=== PATIENT | female | born 1950 | race Caucasian/White ===

== ENCOUNTER 2020-01-16 17:13 | Emergency (ER) | payer MEDICARE, OTHER ==
[~2020-01-16] VITALS: Ht 162.6 cm; Wt 93.4 kg
[~2020-01-16 17:13] MED LIST: DEMADEX10 MG PO; IBUPROFEN800 MG PO; LISINOPRIL20 MG PO; SPIRONOLACTONE50 MG PO
--- OUTSIDE RECORDS SUMMARY | 2020-01-16 19:04 | XMS ---
PreManage Notification: DANIEL EVANS Security Trimming Caser Events No recent Security Events currently on file CRITERIA MET - History of Sepsis [facility] - 2 Visits in 30 Days [facility]Srinivasa MCCURDY [employer] PHONE: [phone] Tania has no Care Guidelines for this patient. Vel VISIT COUNT (12 MO.) [address] TOTAL 4 NOTE: Visits indicate total known visits. ED/C VISIT TRACKING (12 MO.) 01/16/2020 17:14 [facility] [place] [place] TYPE: Emergency COMPLAINT: - RT LEG PAIN [facility] DIAGNOSES: - Leg Pain - Leg Swelling 03/05/2019 16:43 [facility] [place] TYPE: Emergency COMPLAINT: - POSS INFECTION LT INDEX FINGER DIAGNOSES: - Contusion of left hip, initial encounter - Pain in left finger(s) - Allergy status to penicillin - Nicotine dependence, unspecified, uncomplicated - Fall on same level, unspecified, initial encounter - Pain in left hip - Allergy status to narcotic agent 02/28/2019 11:30 [facility] [place] TYPE: Emergency DIAGNOSES: - SPIDER BITE INPATIENT VISIT TRACKING (12 MO.) No inpatient visits to display in this time frame [id number]
[2020-01-16] MEDS ORDERED: GABAPENTIN300 MG PO (19:21)
[2020-01-16] MEDS ORDERED: HYDROMORPHONE HC2 MG PO (19:21)
[2020-01-16] MEDS ORDERED: TRAMADOL HCL50 MG PO (19:21)
[2020-01-16] MEDS ORDERED: LISINOPRIL10 MG PO (19:21)
== END 2020-01-16 21:47 | disposition home or self-care (01) ==
LOC: ED 17:13
DX: R60.0 Localized edema (principal); F17.200 Nicotine dependence, unspecified, uncomplicated; Z88.0 Allergy status to penicillin; Z88.5 Allergy status to narcotic agent; Z79.899 Other long term (current) drug therapy
CPT/HCPCS: 93971; 94640; 94664; 99284-25

== ENCOUNTER 2020-05-18 01:54 | Emergency (ER) | payer MEDICARE, OTHER ==
[~2020-05-18] VITALS: Ht 162.6 cm; Wt 83.9 kg
[~2020-05-18 01:54] MED LIST changes: +GABAPENTIN300 MG PO; +HYDROMORPHONE HC2 MG PO; +LISINOPRIL10 MG PO; +TRAMADOL HCL50 MG PO
--- OUTSIDE RECORDS SUMMARY | 2020-05-18 01:56 | XMS ---
PreManage Notification: DANIEL EVANS Security Delivery Person Events No recent Security Events currently on file CRITERIA MET - History of Sepsis Dx - PDMP [facility] KAZ Ramos PHONE: [phone] Tania has no Care Guidelines for this patient. E.Trini VISIT COUNT (12 MO.) 1 [facility] 2 [facility] TOTAL 3 NOTE: Visits indicate total known visits. ED/C VISIT TRACKING (12 MO.) 05/18/2020 01:55 [facility] TYPE: Emergency COMPLAINT: - KNEE PAIN 01/16/2020 17:14 [facility] TYPE: Emergency COMPLAINT: - RT LEG PAIN/NO INJURY DIAGNOSES: - Nicotine dependence, unspecified, uncomplicated - Localized edema - Allergy status to narcotic agent - Allergy status to narcotic agent - Allergy status to penicillin - Other chcf (current) drug therapy - Other specified soft tissue disorders 01/16/2020 14:44 [facility] [place] TYPE: Emergency DIAGNOSES: - Leg Pain - Leg Swelling INPATIENT VISIT TRACKING (12 MO.) No inpatient visits to display in this time frame [id number]
== END 2020-05-18 06:36 | disposition left against medical advice (07) ==
LOC: ED 01:54
DX: S09.90XA Unspecified injury of head, initial encounter (principal); S16.1XXA Strain of muscle, fascia and tendon at neck level, initial encounter; S80.01XA Contusion of right knee, initial encounter; W01.0XXA Fall on same level from slipping, tripping and stumbling without subsequent striking against object, initial encounter; F17.200 Nicotine dependence, unspecified, uncomplicated; Z88.0 Allergy status to penicillin; Z88.5 Allergy status to narcotic agent; Z79.899 Other long term (current) drug therapy
CPT/HCPCS: 70450; 72125; 73560; 99284-25; A9270

== ENCOUNTER 2021-01-28 17:10 | Emergency (ER) | payer MEDICARE, OTHER ==
[~2021-01-28] VITALS: Ht 167.6 cm; Wt 97.5 kg
--- NOTE | 2021-01-28 20:03 | EKG ---
[facility] [address] [facility] [place], [place] [address] Signed Normal sinus rhythm Nonspecific T wave abnormality Abnormal ECG When compared with ECG of 28-JAN-2021 17:18, (Unconfirmed) No significant change was found Confirmed by HERI HERNANDEZ DO ([id number]) on 01/28/2021 8:03:42 PM Electronically Signed By: HERI HERNANDEZ DO 01/28/212002 PATIENT NAME: DANIEL EVANS Electrocardiogram DATE OF : 54 PHYSICIAN: HERI HERNANDEZ DO REPORT #: [id number] REPORT IS CONFIDENTIAL AND NOT TO BE RELEASED WITHOUT AUTHORIZATION
[2021-01-28] MEDS ORDERED: PROTONIX40 MG PO (22:02)
[2021-01-28] MEDS ORDERED: ZOFRAN4 MG PO (22:02)
[2021-01-28] MEDS ORDERED: HYDROCODON-ACE1 EA10 PO (22:02)
[2021-01-28] MEDS ORDERED: CEPHALEXIN500 MG PO (22:10)
--- NOTE | 2021-01-29 14:06 | EKG ---
[facility] [address] [facility] [place], [place] [address] Signed Normal sinus rhythm Normal ECG No previous ECGs available Confirmed by HERI HERNANDEZ DO ([id number]) on 01/29/2021 2:06:29 PM Electronically Signed By: HERI HERNANDEZ DO 01/29/21 1406 PATIENT NAME: DANIEL EVANS Electrocardiogram DATE OF : 54 PHYSICIAN: HERI HERNANDEZ DO REPORT #: [id number] REPORT IS CONFIDENTIAL AND NOT TO BE RELEASED WITHOUT AUTHORIZATION
== END 2021-01-28 22:51 | disposition home or self-care (01) ==
LOC: ED 17:10
DX: R10.13 Epigastric pain (principal); R07.9 Chest pain, unspecified; N39.0 Urinary tract infection, site not specified; I25.2 Old myocardial infarction; F17.200 Nicotine dependence, unspecified, uncomplicated; Z88.5 Allergy status to narcotic agent; Z20.822 Contact with and (suspected) exposure to COVID-19
CPT/HCPCS: 71045; 71275; 74174; 80053; 81001; 83605; 83690; 83735; 83880; 84484; 85025; 85379; 93005; 93010; 99285-25; A9270; C9803; J1170; J2405; Q9967; U0003

== ENCOUNTER 2021-04-03 15:05 | Emergency (ER) | payer MEDICARE, OTHER ==
[~2021-04-03] VITALS: Ht 167.6 cm; Wt 89.8 kg
[~2021-04-03 15:05] MED LIST changes: +CEPHALEXIN500 MG PO; +HYDROCODON-ACE1 EA10 PO; +LASIX20 MG PO; +POTASSIUM CHLO10 MEQ PO; +PROTONIX40 MG PO; +ZOFRAN4 MG PO
--- OUTSIDE RECORDS SUMMARY | 2021-04-03 15:14 | XMS ---
PreManage Notification: DANIEL EVANS Security [employer] Work[employer] Events 1 event(s) in the past 18 months Most recent security events: Elopement at [facility] 05/18/2020 01:55 - Other Details: PATIENT LEFT AMA CRITERIA MET - [facility] - 2 Visits in 30 Days CARE PROVIDERS MIGUEL MCCOY [facility] 05/21/2020-Current PHONE: [phone] [facility] KAZ Ramos PHONE: [phone] Tania has no Care Guidelines for this patient. Vel VISIT COUNT (12 MO.) [address] [place] [address] TOTAL 4 NOTE: Visits indicate total known visits. ED/UCC VISIT TRACKING (12 MO.) 04/03/2021 15:06 [facility] [place] TYPE: Emergency COMPLAINT: - WEAKNESS 03/26/2021 15:26 [facility] [place] TYPE: Emergency COMPLAINT: - WEAKNESS, FEEL BAD, FATIGUED DIAGNOSES: - Nicotine dependence, unspecified, uncomplicated - Allergy status to penicillin - Heart failure, unspecified - Weakness - Allergy status to narcotic agent 01/28/2021 17:11 [facility] [place] TYPE: Emergency COMPLAINT: - CHEST PAIN DIAGNOSES: - Chest pain, unspecified - Urinary tract infection, site not specified - Old myocardial infarction - Nicotine dependence, unspecified, uncomplicated - Allergy status to narcotic agent - Epigastric pain 05/18/2020 01:55 [facility] [place] TYPE: Emergency COMPLAINT: - KNEE PAIN DIAGNOSES: - Other tank terminal gauger (current) drug therapy - Unspecified injury of head, initial encounter - Allergy status to penicillin - Nicotine dependence, unspecified, uncomplicated - Fall on same level from slipping, tripping and stumbling without subsequent striking against object, initial encounter - Contusion of right knee, initial encounter - Strain of muscle, fascia and tendon at neck level, initial encounter - Allergy status to narcotic agent - Pain in right knee INPATIENT VISIT TRACKING (12 MO.) No inpatient visits to display in this time frame [id number]
[2021-04-03] MEDS ORDERED: POTASSIUM CHLO20 ME2 PO (18:16)
[2021-04-03] MEDS ORDERED: LASIX20 MG PO (18:16)
[2021-04-03] MEDS ORDERED: VENTOLIN HFA18 GM INH (18:18)
== END 2021-04-03 18:42 | disposition home or self-care (01) ==
LOC: ED 15:05
DX: I50.9 Heart failure, unspecified (principal); I25.2 Old myocardial infarction; F17.200 Nicotine dependence, unspecified, uncomplicated; J44.9 Chronic obstructive pulmonary disease, unspecified; Z88.0 Allergy status to penicillin; Z88.5 Allergy status to narcotic agent; Z79.899 Other long term (current) drug therapy; Z20.822 Contact with and (suspected) exposure to COVID-19; Z79.51 Long term (current) use of inhaled steroids
CPT/HCPCS: 36415; 71045; 80048; 83880; 85025; 99285-25; U0003

== ENCOUNTER 2021-06-12 14:32 | Emergency (ER) | payer OTHER, MEDICARE ==
[~2021-06-12] VITALS: Ht 167.6 cm; Wt 89.8 kg
--- NOTE | ~2021-06-12 | EKG ---
[facility] [address] [facility] [place], [place] [address] Draft EK completed, results pending confirmation PATIENT NAME: DANIEL EVANS Electrocardiogram DATE OF : 54 PHYSICIAN: PRELIMINARY REPORT #: [id number] REPORT IS CONFIDENTIAL AND NOT TO BE RELEASED WITHOUT AUTHORIZATION
[~2021-06-12 14:32] MED LIST changes: +POTASSIUM CHLO20 ME2 PO; +VENTOLIN HFA18 GM INH
== END 2021-06-12 18:19 | disposition home or self-care (01) ==
LOC: ED 14:32
DX: I63.9 Cerebral infarction, unspecified (principal); I21.4 Non-ST elevation (NSTEMI) myocardial infarction; I25.2 Old myocardial infarction; I50.9 Heart failure, unspecified; F17.200 Nicotine dependence, unspecified, uncomplicated; Z88.0 Allergy status to penicillin; Z88.5 Allergy status to narcotic agent; Z79.899 Other long term (current) drug therapy
CPT/HCPCS: 70450; 70496; 70498; 71045; 80053; 85025; 85610; 85730; 93005; 93010; Q9967

== ENCOUNTER 2022-01-20 18:04 | Inpatient (IN) | payer MEDICARE, OTHER ==
[~2022-01-20] VITALS: Ht 167.6 cm; Wt 70.1 kg
--- OUTSIDE RECORDS SUMMARY | 2022-01-20 18:06 | XMS ---
PreManage Notification: DANIEL EVANS Security Photographic Platemaker Events 1 event(s) in the past 18 months Most recent security events: Elopement at [facility] 12/24/2021 18:26 - Patient eloped before treatment completed. - Patient with suicidal and/or homicidal ideations eloped. - Patient eloped with IV in place. Details: Patient LWOB CRITERIA MET - [facility] - 2 Visits in 30 Days - Group Notification CARE PROVIDERS MIGUEL MCCOY [facility] 05/21/2020-Current PHONE: [phone] [facility] KAZ Ramos PHONE: [phone] Kerrie Gabriel Craft Artist/Driver'S License Reviewing Officer 11/16/2021-Current PHONE: [phone] Tania has no Care Guidelines for this patient. Vel VISIT COUNT (12 MO.) 6 [facility] TOTAL 6 NOTE: Visits indicate total known visits. ED/UCC VISIT TRACKING (12 MO.) 01/20/2022 18:04 [facility] [place] TYPE: Emergency COMPLAINT: - WEAKNESS 12/24/2021 18:26 [facility] [place] TYPE: Emergency COMPLAINT: - FALL BACK PAIN 06/12/2021 14:33 [facility] [place] TYPE: Emergency COMPLAINT: - FALL DIAGNOSES: - Other long wall mining machine tender (current) drug therapy - Non-ST elevation (NSTEMI) myocardial infarction - Weakness - Heart failure, unspecified - Nicotine dependence, unspecified, uncomplicated - Allergy status to narcotic agent - Old myocardial infarction - Allergy status to penicillin - Cerebral infarction, unspecified 04/03/2021 15:06 [facility] [place] TYPE: Emergency COMPLAINT: - WEAKNESS DIAGNOSES: - Chronic obstructive pulmonary disease, unspecified - Allergy status to penicillin - Old myocardial infarction - Contact with and (suspected) exposure to COVID-19 - Allergy status to narcotic agent - Other mcc (current) drug therapy - Weakness - Heart failure, unspecified - Nicotine dependence, unspecified, uncomplicated - alf (current) use of inhaled steroids 03/26/2021 15:26 [facility] [place] TYPE: Emergency COMPLAINT: - WEAKNESS, FEEL BAD, FATIGUED DIAGNOSES: - Allergy status to narcotic agent - Heart failure, unspecified - Allergy status to penicillin - Weakness - Patient's noncompliance with other medical treatment and regimen - Nicotine dependence, unspecified, uncomplicated 01/28/2021 17:11 [facility] [place] TYPE: Emergency COMPLAINT: - CHEST PAIN DIAGNOSES: - Allergy status to narcotic agent - Old myocardial infarction - Contact with and (suspected) exposure to COVID-19 - Epigastric pain - Nicotine dependence, unspecified, uncomplicated - Urinary tract infection, site not specified - Chest pain, unspecified INPATIENT VISIT TRACKING (12 MO.) No inpatient visits to display in this time frame [id number]
--- NOTE | 2022-01-21 01:22 | NUR ---
PT ARRIVED VIA STRETCHER FROM ED. REPORT RECEIVED FROM KAYLA MELENDEZ. PT ABLE TO ROLL SELF FROM STRETCHER TO BED. PT REQUESTING TO USE COMMODE. 1PA FROM BED TO COMMODE AND BACK TO BED. KAYLA TAYLOR IN ROOM FOR QUICK ADMIT. NO OTHER NEEDS FROM THIS RN AT THIS TIME. CALL LIGHT IN REACH.
--- NOTE | 2022-01-21 02:16 | NUR ---
ASSESSMENT COMPLETE. LUNG SOUNDS CLEAR. BOWEL TONES ACTIVE. PT ON RA WITH O2 SATS AT 95%. PT REPORTING PAIN 7/10 IN LOWER BACK. PT REPOSITIONED SELF AND IS RESTING IN BED LAYING ON LEFT SIDE. SCATTERED BRUISING NOTED TO BLE. WHEN ASSESSING SENSATION PT WAS UNABLE TO TELL WHEN LLE WAS TOUCHED. PT ALSO REPORTED THAT SHE SOMETIMES GETS NUMBNESS IN BUE AND BLE. PT DENIES ANY OTHER NEEDS AT THIS TIME. CALL LIGHT IN REACH. BED ALARM ON.
--- NOTE | 2022-01-21 02:30 | NUR ---
pt ARRIVES TO [place] VIA STRETCHER. UP TO BSC, 1PA. PRIMARY RN ASSESSING pt. pt FORGETFUL, DOES NOT TAKE ANY HOME MEDICATIONS. EMOTIONAL REGARDING CONVERSATION WITH ER DR. carmela'S SON AND BROTHER NOTIFIED VIA TELEPHONE BY THIS RN THAT pt IN HOSPITAL. pt REQUESTING PASTORAL CARE VISIT. ORIENTATION TO ROOM PROVIDED.
--- NOTE | 2022-01-21 05:33 | NUR ---
PT RESTING IN BED. VITALS AND IS AND OS COMPLETE. WHILE TRYING TO TAKE VITALS PT WAS FORGETFUL OF THE FACT I WAS TRYING TO TAKER HER BP AND KEPT MOVING. PT HAD TO BE REMINDED SEVERAL TIMES OF WHAT WE WERE DOING. PT DECLINES NEEDS TO USE RESTROOM. NO FURTHER NEEDS. CALL LIGHT WITHIN REACH.
--- NOTE | 2022-01-21 06:15 | NUR ---
IN TO ROUND ON PT. PT INCONTINENT OF URINE. OLD ATTENDS AND TIFFANIE PADS REMOVED. PRISCA CARE PROVIDED. NEW ATTENDS AND TIFFANIE PAD PLACED. NEW GOWN AND BLANKETS PROVIDED. PT REQUESTING A SNACK. JELLO PROVIDED. FRESH ICE WATER PROVIDED. PT REPORTS NO OTHER NEEDS AT THIS TIME. CALL LIGHT IN REACH. EDUCATION TRAFFIC ENGINEERING DIRECTOR LIGHT USE PROVIDED. BED ALARM ON.
--- NOTE | 2022-01-21 07:20 | NUR ---
ASSUMING CARE OF PT. RECEIVED REPORT FROM UNRULY GARZA. PT RESTING IN BED, CALL LIGHT WITHIN REACH. BED ALARM ON FOR PT SAFETY. PT HAS LR GOING AT 150ML/HR.
--- NOTE | 2022-01-21 10:13 | NUR ---
IN ROOM FOR MORNING ASSESSMENT AND MORNING MEDICATION. PT COMPLAINT OF NAUSEA AND BEGAN DRY HEAVING. NAUSEA MEDICATION GIVEN TO PT. PT RESTING IN BED, CALL LIGHT WITHIN REACH, BEDRAILS UP FOR SAFETY. BED ALARM ON.
--- NOTE | 2022-01-21 10:15 | NUR ---
Spoke with pt and she states she lives in an apartment, no stairs. She lives alone, but has a small dog. She uses a walker. She has a history of a stroke and also of meth use. She has hep C and and numerous masses on her liver. She is upset by this new diagnosis. She does not want to be placed and plans on dc to home. She has a friend, but it is unclear if they will be able to help her. At this time pt plans on dc to home and fu with oncology. Pt declined PT today. She has a niece in law abd nephew in town. Her sister is in [facility]. She does not know their phone numbers and declines to give names. Pt has a history of drug use, does not want to discuss this.
--- NOTE | 2022-01-21 10:21 | NUR ---
DR RHOADES IN ROOM TO ASSESS PT.
--- NOTE | 2022-01-21 10:50 | NUR ---
PT SALINE LOCKED AND TAKEN CT VIA WHEELCHAIR BY IMAGING STAFF.
--- NOTE | 2022-01-21 11:26 | NUR ---
PT RESTING IN BED WITH BLANKET COVERING BODY. CALL LIGHT WITHIN REACH AND BEDRAILS UP FOR SAFETY. BED ALARM IN PLACE. PT HOOKED BACK UP TO IV FLUID. NO FURTHER NEEDS AT THIS TIME.
--- NOTE | 2022-01-21 13:07 | NUR ---
MED REC COMPLETE
--- NOTE | 2022-01-21 14:13 | NUR ---
PT ASSISTED TO BATHROOM AND BACK TO BED WITH 1PA/FWW. PT SLEEPY, BUT AMBULATED WELL. DENIED PAIN OR NAUSEA AT THIS TIME. CALL LIGHT WITHIN REACH AND BEDRAILS UP FOR SAFETY.
--- NOTE | 2022-01-21 14:51 | NUR ---
PT HAD REQUESTED SPIRITUAL CARE VISIT-INFORMED BY KAYLA CASTILLO. PT RESTING IN BED ON L SIDE, BED ALARM GOING OFF. KAYLA JACKSON IN TO ADJUST. PT EXPRESSED DISMAY AT NOT HAVING HER DOG "YETI" IN WITH HER. M/S STAFF WILL WORK TO MAKE THIS HAPPEN. PT SHARED HOW IMPORTANT HER DOG IS TO HER. PT REQUESTED PRAYER, INCLUDED PRAYER FOR SAFETY FOR HER DOG. GAVE BLESSING AND G.POST. WILL FOLLOW
--- NOTE | 2022-01-21 15:52 | CONS ---
[facility] [address] [place], [place] [address] Signed DATE OF CONSULTATION: 01/21/2022 CHIEF COMPLAINT: Weight loss. HISTORY OF PRESENT ILLNESS: Daniel is a 71-year-old female who apparently is and her three children have moved away. She lives in a trailer. She does not drive. She uses a taxi service. Her brother Terry happens to live here in [place], [place], but apparently they do not get along very well. She has not been to her doctor in over a year. She is supposed to take blood pressure pills and diuretic pills. She has been smoking up to two packs of cigarettes a day for years. She says she quit drinking alcohol. She has been feeling just weak and losing weight the last month with nausea and just overall body aches and pains and some diarrhea. She finally came to emergency room for evaluation. In the emergency room, her calcium was high at 14.9 with a slightly elevated alkaline phosphatase of 1.18 and a positive urinalysis. She was therefore given Lasix, saline and calcitonin with a decrease in a calcium level of 12.1 and some Rocephin for the UTI. She has been admitted to the Internal Medicine service. She had a chest x-ray which was not very concerning. However, the CT scan of the chest, abdomen and pelvis shows multiple lymph nodes in her neck, mediastinum and abdomen. She has some mucus plugging and tree budding in her lungs. She has multiple metastatic lesions in her liver. There was some thickening to the proximal gastric body associated with hiatal hernia. Therefore, I have been asked to see her as a general surgeon on-call for consideration of upper endoscopy. PAST MEDICAL HISTORY: Hepatitis C virus, CA x2, congestive heart failure, COPD, hiatal hernia and diverticulosis. PAST SURGICAL HISTORY: Includes bilateral total knee replacement, cholecystectomy, appendectomy, kidney stones, lumbar back fusion with metal remaining. SOCIAL HISTORY: She smoked up to two packs of cigarettes a day for years. She quit drinking. She is and has three children, none of which live around here. Her brother Terry happens to live here in [place], [place]. His phone #[phone]. She lives in a trailer, but does not drive. She uses a taxi service. She has kept herself a full code. She prefers the [facility] pharmacy. Dr. Oracio Mccoy is her primary care provider. FAMILY HISTORY: Mom had an unknown type of cancer. Electronically Signed By: NOY RHOADES MD 01/21/22 1552 PATIENT NAME: DANIEL EVANS CONSULTATION DATE OF : 54 REPORT #: [id number] PHYSICIAN: NOY RHOADES MD PCP: ORACIO MCCOY MD REPORT IS CONFIDENTIAL AND NOT TO BE RELEASED WITHOUT AUTHORIZATION [facility] [address] [place] [id number] Signed REVIEW OF SYSTEMS: She had 10 systems reviewed and she apparently has never had a previous colonoscopy. ALLERGIES: Penicillin, codeine. MEDICATIONS: She is supposed to take a blood pressure pill and a diuretic pill. PHYSICAL EXAMINATION: VITAL SIGNS: Blood pressure is 141/69, heart rate 87, respiratory rate 19, temperature 97.1. She is 97% on room air. She is 5 feet 6 inches at 70 kg. GENERAL: Daniel is a 71-year-old female lying supine semi-recumbent in her hospital bed. The nurse is at the bedside. She looks older than her stated age. She has clearly been a long-time smoker. She does appear little fatigued and weak. She is not emaciated, but she is thin. LUNGS: Generally clear to auscultation bilaterally. HEART: Regular rate and rhythm without murmurs. ABDOMEN: Soft, flat, and feels like I can catch the anterior edge of the liver below the right subcostal margin. I cannot palpate any specific masses in the abdomen. LABORATORY DATA: Her white blood cell count 9.5, hemoglobin 12, her creatinine 1.36, calcium was 14.9, it is down to 12.1. Liver function tests are negative, although the alkaline phosphatase is up a little bit at 118. Albumin is 3.0. TSH normal 1.3. BNP was up at 2764. COVID was negative. The urine culture came back with lots of white blood cells, red blood cells and bacteria. The urine culture is pending. RADIOGRAPHIC STUDIES: Chest x-ray was unremarkable. The CT scan shows the multiple liver METS and lymph nodes throughout the neck, mediastinum and abdomen. She has some thickening along the proximal gastric body near the hiatal hernia. She has some mucous plugging and tree buds as well. ASSESSMENT AND PLAN: Daniel is a 71-year-old female who presents with metastatic cancer. The source is not clear. It could be stomach. Therefore, I have been asked to do an upper endoscopy tomorrow with biopsies. If that is negative, she would be best served by CT-guided biopsy on liver lesions. If she has surgery she will have to heal for 6 to 8 weeks before she can receive any chemotherapy. I reviewed this with Daniel in detail. We have reviewed upper endoscopy. She understands there is risk including, but not limited to gas bloating, crampy abdominal pain, bleeding, perforation requiring surgery, and missed diagnosis. She will also need a monitored anesthesia care provider. She has expressed Electronically Signed By: NOY RHOADES MD 01/21/22 1443 PATIENT NAME: DANIEL EVANS CONSULTATION DATE OF : 54 REPORT #: [id number] PHYSICIAN: NOY RHOADES MD PCP: ORACIO MCCOY MD REPORT IS CONFIDENTIAL AND NOT TO BE RELEASED WITHOUT AUTHORIZATION [facility] [address] [place] [id number] Signed understanding and would like to proceed. MD JEANNE Camp/CHAVEZL /[id number] cc: MD Dr. Oracio Camp Copies: NOY RHOADES MD ~ Electronically Signed By: NOY RHOADES MD 01/21/22 1552 PATIENT NAME: DANIEL EVANS CONSULTATION DATE OF : 54 REPORT #: [id number] PHYSICIAN: NOY RHOADES MD PCP: ORACIO MCCOY MD REPORT IS CONFIDENTIAL AND NOT TO BE RELEASED WITHOUT AUTHORIZATION
--- NOTE | 2022-01-21 16:39 | NUR ---
Bed alarming, pt sitting at edge of bed and states needing to use BR. Left sided neglect/defecits noted with ambulation requiring cueing. Pt states has a "sour taste in her stomach". Neuro exam completed, pt oriented to all but date, time. Pt states numbness in BLE. L hand facepiece line supervisor 2/5, R hand 5/5. Back to bed, warm blankets provided, bed alarm set.
--- NOTE | 2022-01-21 17:16 | NUR ---
Call light answered, pt's daughter Coty on personal cell phone, patient asks this RN to give her daughter an update and add her to her contact list. Pt daughter updated on pt condition and all questions answered. Pt denies further needs, oriented at this time.
--- NOTE | 2022-01-21 17:33 | NUR ---
PT REFUSED TO EAT DINNER BECAUSE IT WAS "GROSS". TRIED PUDDING, DIDNT WANT THAT. GIVEN 7UP DIDNT WANT THAT. TRYING SALTINES. GIVEN HOT PACK FOR SORE BACK. IN BED RESTING, CALL LIGHT IN REACH.
--- NOTE | 2022-01-21 18:37 | NUR ---
PT RESTING IN BED, CALL LIGHT WITHIN REACH, BEDRAILS UP FOR SAFETY. NO COMPLAINTS OR NEEDS AT THIS TIME.
--- NOTE | 2022-01-21 19:15 | NUR ---
REPORT RECEIVED FROM KAYLA CASTILLO AND KAYLA JACKSON. PT UP TO COMMODE. JORGE L YIN IN ROOM WITH PT. NO NEEDS FROM THIS RN AT THIS TIME.
--- NOTE | 2022-01-21 21:47 | NUR ---
IN TO ADMINISTER MEDICATION. IV MEDICATION ADMINISTERED, SEE MAR. PT RESTING IN BED AND RESPONDS WHEN ADDRESSED. ASSESSMENT COMPLETE. LUNG SOUNDS DIMINISHED IN LLL. INSPIRATORY WHEEXING IN HENRY. BOWEL TONES ACTIVE. PT REPORTING SOME LOW BACK PAIN. PT REPOSITIONED IN BED. PT DENIES ANY OTHER NEEDS AT THIS TIME. CALL LIGHT IN REACH.
--- NOTE | 2022-01-21 23:15 | NUR ---
BED ALARMING. THIS JET ENGINE MECHANIC AND KAYLA HARRELL HELPED PATIENT USE THE BEDSIDE COMMODE. GAIT BELT AND WALKER USED. CHANGED BED LINEN AND GOWN DUE TO WET WITH URINE. PATIENT IS BACK IN BED. WARM BLANKET PROVIDED. BED ALARM ON FOR SAFETY.
--- NOTE | 2022-01-21 23:46 | NUR ---
IN TO ANSWER CALL LIGHT. PT REQUESTING WARM BLANKETS, WARM BLANKETS PROVIDED. PT DENIES NEEDING TO USE RESTROOM AT THIS TIME. PT IS NPO AT MIDNIGHT. CRACKERS REMOVED FROM BEDSIDE. PT REQUESTING TO REPOSITION TO RIGHT SIDE. PT ABLE TO ROLL SELF TO RIGHT SIDE. NO OTHER NEEDS AT THIS TIME. CALL LIGHT IN REACH. BED ALARM ON. IV INFUSING WNL.
--- NOTE | 2022-01-22 00:22 | NUR ---
PT RESTING IN BED ON LEFT SIDE. SCDs PLACED. PT BECOMES UPSET ABOUT NOT BEING ABLE TO SEE HER DOG. PT STATES "I AM HAVING TROUBLE TRYING TO FALL ASLEEP." THERAPUTIC COMMUNICATION WITH PT ABOUT NEEDING TO GET SOME SLEEP BEFORE PROCEDURE IN THE MORNING. PT DENIES ANY OTHER NEEDS AT THIS TIME. CALL LIGHT IN REACH.
--- NOTE | 2022-01-22 00:54 | NUR ---
IV PUMP ALARMING, DISTAL OCCLUSION. IVF INFUSING WNL PER ORDERS AT THIS TIME. pt LYING ON RIGHT SIDE, EYES CLOSED, BREATHING EQUAL AND UNLABORED. BED ALARM ON.
--- NOTE | 2022-01-22 02:00 | NUR ---
pt UP TO BSC, LARGE INCONTINENT VOID IN BED. ATTENDS CHANGED. BACK IN BED. pt UPSET, STATES SHE WANTS A DRINK OF WATER AND CAN DO WHAT SHE WANTS. EDUCATION PROVIDED. MOUTH SWAB PROVIDED. pt EMOTIONAL, CRYING, DISCUSSING DIAGNOSIS WITH RN. pt REQUESTING DOG BE BROUGHT IN. THERAPEUTIC COMMUNICATION PROVIDED. CALL LIGHT IN REACH. BED ALARM ON.
--- NOTE | 2022-01-22 05:48 | NUR ---
[employer] DOWN TIME FROM 0100 TO 0545. SEE PAPER CHARTS.
--- NOTE | 2022-01-22 05:49 | NUR ---
PHONE CALL FROM PATIENT'S NIECE [facility]OTIE [facility]TS. TRANSFERRED TO pt ROOM PER pt REQUEST. pt EXPLAINING TO NIECE THAT SHE HAS CANCER. CALL LIGHT IN REACH. BED ALARM ON.
--- NOTE | 2022-01-22 07:15 | NUR ---
NIMA GARZA FROM SURGERY HERE TO TAKE PT TO OR. PT MOVED TO OR VIA STRETCHER.
--- NOTE | 2022-01-22 07:20 | NUR ---
ASSUMING CARE OF PT. RECEIVED REPORT FROM UNRULY GARZA. PT TAKEN TO SURGERY FOR EGD.
--- NOTE | 2022-01-22 08:26 | NUR ---
01/22/22 0826 Verna Velez 0830-PATIENT ARRIVED TO PACU ON 4L NC RR EVEN LAYING SUPINE HOB ELEVATED. PATIENT REACTIVE TO VERBAL STIMULI SLIGHTLY OPENING EYES. SR. IVF INFUSING. ABDOMEN SOFT.
--- NOTE | 2022-01-22 08:50 | NUR ---
Patient returns from PACU on stretcher, somnolent, on 2L NC o2, CPOX in place. VSS. IVF infusing WNL. Pt has no c/o pain or needs. Bed alarm on, call light in reach.
--- NOTE | 2022-01-22 09:59 | NUR ---
PT RESTING IN BED, CALL LIGHT WITHIN REACH, BEDRAILS UP FOR SAFETY. PT SOMNULENT IN BED BUT RESPONDS TO VERBAL CUES WITH ASSISTANCE. PT DENIES NEEDS AT THIS TIME.
--- NOTE | 2022-01-22 10:25 | NUR ---
PT YELLNG OUT, "HELP!" THIS RN TO ROOM, PT STATES SHE NEEDS TO CALL HER DAUGHTER SHE JUST SPOKE TO HER, PT GIVEN PHONE. PT ALSO STATES SHE NEEDS HELP ADJUSTING IN BED, PT ASSISTED, AND CORD MOVED FOR SAFETY AND COMFORT. NO FURTHER NEEDS AT THIS TIME.
--- NOTE | 2022-01-22 10:46 | OR ---
[facility] [address], [place] [address] Signed DATE OF OPERATION: 01/22/2022 SURGEON: Noy Rhoades MD PREOPERATIVE DIAGNOSES: 1. Multiple metastatic disease. 2. Hiatal hernia. 3. Thickening of the proximal gastric body on CT scan. POSTOPERATIVE DIAGNOSES: 1. Mild distal gastritis. 2. Moderate-sized hiatal hernia (38-34 cm). 3. GE junction with mass at 34 cm. PROCEDURE: EGD with CLOtest and biopsies of the pylorus, antrum, hiatal hernia and GE junction mass. ESTIMATED BLOOD LOSS: None. INDICATIONS: Daniel is a 71-year-old female, who for the last month has had diarrhea and overall body aches and nausea and weight loss. She came to the emergency room for evaluation. She was found to have significant hypercalcemia and urinary tract infection. She has been a long-time smoker and has COPD and heart failure and previous strokes and heart attacks as well as a history hepatitis C virus. Chest x-ray was not particularly concerning. However, the CT scan of chest, abdomen, and pelvis showed multiple metastatic disease in the lymph nodes of the cervical chain, mediastinum and the para-aortic lymph nodes. She has multiple liver METS. She has some mucus plugging and tree buds on the lungs and then she has the hiatal hernia with some thickening in the proximal gastric body. I have been asked to see her as a general surgeon on-call for consideration of upper endoscopy with biopsies. I met with Daniel yesterday and reviewed the above findings with her. We have reviewed upper endoscopy in detail. Apparently she has never had any previous upper or lower endoscopy. We have reviewed the risks including, but not limited to gas bloating, crampy abdominal pain, bleeding, perforation requiring surgery, and missed diagnosis. We also reviewed the need for monitored anesthesia care given her advanced age, her very frail nature and her advanced medical issues. She had expressed understanding and wished to proceed. PROCEDURE NOTE: Electronically Signed By: NOY RHOADES MD 01/22/22 1046 PATIENT NAME: DANIEL EVANS OPERATIVE REPORT DATE OF : 54 REPORT #: [id number] PHYSICIAN: NOY RHOADES MD PCP: MIGUEL MCCOY MD REPORT IS CONFIDENTIAL AND NOT TO BE RELEASED WITHOUT AUTHORIZATION [facility] [address], [place] [address] Signed Daniel was taken into our endoscopy suite and placed in a supine semi-recumbent position. She was given monitored anesthesia care with propofol per our nurse senior receptionist. A bite block was utilized for the case. The adult gastroscope was introduced and advanced under direct visualization of the camera without difficulty. We went through the GE junction at 34 cm and we saw we thought was some mass-like area off to the side there as we came through that hiatal hernia. The scope went out through the stomach and out in the duodenum. The duodenum was quite unremarkable. She had just a little irritation in the duodenum, so we took a biopsy from this area. She had a little bit of irritation in the distal half of the stomach, so we took a biopsy out of the antrum for pathologic review as well as CLOtest. As we looked around, we did not see any obvious thickening in the proximal half of the stomach particularly the body. We could easily see the hiatal hernia. It turned out to measure from about 38 cm back to about 34 cm. As we came through that hiatal hernia again we can see a mass off to the side. We had taken multiple pictures for photodocumentation. We took several biopsies of this mass in the hiatal hernia and up along the GE junction. The distal, middle and upper esophagus were unremarkable. After this, the gas was suctioned out and the gastroscope removed. Daniel tolerated the procedure quite well. RECOMMENDATIONS: Daniel is going to be returning to her room on the Internal Medicine Service. She will be allowed full liquid diet. We will follow up the biopsies here in due time. Noy Rhoades MD [facility] [place] /[id number] cc: MD Noy Torres MD Copies: NOY RHOADES MD ~ Electronically Signed By: NOY RHOADES MD 01/22/22 1046 PATIENT NAME: DANIEL EVANS OPERATIVE REPORT DATE OF : 54 REPORT #: [id number] PHYSICIAN: NOY RHOADES MD PCP: MIGUEL MCCOY MD REPORT IS CONFIDENTIAL AND NOT TO BE RELEASED WITHOUT AUTHORIZATION
--- NOTE | 2022-01-22 10:58 | NUR ---
PT CALLED, THIS RN IN ROOM. PT COMPLAINT OF SEVERE PAIN IN RAC IV SITE, MOANIGN AND STATES HER ARM REALLY HURTS AND TO "HELP HER". IV FLUIDS STOPPED, IV SITE FLUSHED SLUGGISHLY WITH PT CONTINUING TO COMPLAIN OF PAIN AT SITE. NO SWELLING OR ERYTHEMA NOTED. IV STARTED BY THIS RN IN LEFT WRIST. PT TOLERATED WELL AND IV FLUIDS RESTARTED. WARM BLANKET PLACED OVER PT RIGHT ARM FOR PAIN CONTROL AND ONE ON BODY FOR COMFORT. DENIES FURTHER NEEDS AT THIS TIME. CALL LIGHT WITHIN REACH AND BEDEXIT ALARM ON.
--- NOTE | 2022-01-22 11:53 | NUR ---
PT RESTING IN BED, CALL LIGHT WITHIN REACH, BEDRAIL UP FOR SAFETY. BED ALARM IN PLACE. PT SON AT BEDSIDE. PT DENIES PAIN OR NAUSEA. VS OBTAINED.
--- NOTE | 2022-01-22 13:00 | NUR ---
In and spoke with a patient and her son, Terry. Terry has just arrived. Pt states she tolerated EGD well. She does not remember speaking with Dr. Cantu. She again is stating she plans on discharge to home. Son would like to speak with the DrYair, he is now in surgery. Cont. to discuss with pt, needs for home and she cont. to state she will go home to her trailer. She clarified today she lives in a trailer not an apartment. She denies needing any DME, but would like PJs from her home. He son states he can buy her some before dc, but will have to return to [employer] today. Spoke with Dr. Cantu and updated son would like to speak with him, he states he between surgeries and has given Dr. Carmona and update. He asks Dr. Carmona to speak with pt and family. Dr. Carmona agrees. Returned to room and updated pt and son Dr. Carmona will see them later with an update.
--- NOTE | 2022-01-22 13:01 | NUR ---
PT RESTING IN BED WATCHING TV AND DRINKING FULL LIQUIDS FROM LUNCH. SON AT BEDSIDE. PT DENIES NEEDS AT THIS TIME. PT HAS NS GOING AT 150ML/HR.
--- NOTE | 2022-01-22 14:37 | NUR ---
PT REQUESTING WARM BLANKET. PT GIVEN BLANKET, ATTENDS CHANGED, AND REPOSITIONED IN BED. PT DENIED PAIN OR NAUSEA, STATING SHE JUST WANTS TO REST. PT IS ALERT AND RESPONSIVE TO QUESTIONS AND DIRECTIONS, TALKING ABOUT HER FAMILY AND LIFE AT HOME. CALL LIGHT WITHIN REACH, BEDRAIL UP FOR SAFETY. BED EXIT ALARM ON.
--- NOTE | 2022-01-22 14:45 | NUR ---
IN TO CHECK ON PT, PT SITTING IN BED WATCHING TV. CALL LIGHT WITHIN REACH, BEDRAIL UP FOR SAFETY. PT REQUESTING ADDITIONAL FOOD FOR LUNCH.
--- NOTE | 2022-01-22 15:30 | NUR ---
PHYSICAL THERAPY IN ROOM TO ASSESS PT MOBILITY.
--- NOTE | 2022-01-22 16:15 | NUR ---
PT CALLED, REQUESTING WARM BLANKETS FOR COMFORT. ASSESSMENT COMPLETED AT THIS TIME. CALL LIGHT WITHIN REACH AND BEDRAIL UP FOR SAFETY. RESPIRATIONS EVEN AND UNLABORED.
--- NOTE | 2022-01-22 17:28 | NUR ---
PT CALLED, REQUESTING DINNER, INFORMED DINNER TRAY IS ON TABLE IN ROOM. PT STATES THATS NOT FOOD, PT INFORMED SHE IS ON A FULL LIQUID TRAY. PT VERBALIZED UNDERSTANDING. NO FURTHER NEEDS AT THIS TIME. CALL LIGHT WITHIN REACH AND BEDRAIL UP FOR SAFETY.
--- NOTE | 2022-01-22 18:43 | NUR ---
PT RESTING IN BED, CALL LIGHT WITHIN REACH, BEDRAIL UP FOR SAFETY. RESPIRATIONS EVEN AND UNLABORED. PT HAD EGD THIS AFTERNOON AND HAS BEEN SLEEPING ON AND OFF MOST OF THE DAY. PT SON VISITED FOR A PERIOD OF TIME AND INFORMED OF PT PLAN OF CARE. PT ON CPOX DUE TO PROCEDURE PROTOCOL AND RECEIVING NS AT 100ML/HR. PT DENIES NAUSEA, PAIN OR FURTHER NEEDS. BED ALARM IS IN PLACE PT WILL QUICKLY GET OUT OF BED. ATTENDS CHANGED REGULARLY NEEDED. PT INFORMED OF RESULTS FROM EGD.
--- NOTE | 2022-01-22 19:05 | NUR ---
REPORT RECEIVED FROM KAYLA JACKSON. PT RESTING IN BED WITH EYES CLOSED. RR EVEN AND UNLABORED. NO NEEDS IDENTIFIED AT THIS TIME. CALL LIGHT IN REACH. BED ALARM ON.
--- NOTE | 2022-01-22 19:49 | NUR ---
IN TO ADMINISTER MEDICATION. PT TAKES PO MEDICATION WITH NO ISSUES. PRISCA CARE PROVIDED WITH ASSISTANCE FROM KAYLA JOHNSON. LINENS CHANGED ASSESSMENT COMPLETE. LUNG SOUNDS DIMINISHED IN RLL AND LLL. CRACKLES IN HENRY. BOWEL TONES ACTIVE. PT REPORTING PAIN 10/10 IN LOWER BACK AND MID RIGHT RIB AREA. PRN PAIN MEDICATION ADMINISTERED, SEE MAR. IV FLUID RATE CHANGED TO 100ML/HR PER APR. WARM BLANKETS PROVIDED. PT REPORTS NO OTHER NEEDS AT THIS TIME. CALL LIGHT IN REACH. BED ALARM ON.
--- NOTE | 2022-01-22 20:08 | NUR ---
IN TO ADMINISTER MEDICATIONS. PRN PAIN MEDICATION PERCOSET ADMINISTERED, SEE MAR. PT REPORTING PAIN 10/10 IN LOWER BACK AND STERNUM RIB PAIN FROM COUGH. ASSESSMENT COMPLETE. LUNG SOUNDS DIMINISHED IN BASES. BOWEL TONES ACTIVE. PRISCA CARE PROVIDED WITH ASSISTANCE FROM KAYLA JOHNSON. LINENS CHANGED. ICE WATER PROVIDED. IV INFUSING WNL. RATE CHANGED TO 100ML/HR PER APR. PT REPORTS NO OTHER NEEDS AT THIS TIME. CALL LIGHT IN REACH.
--- NOTE | 2022-01-22 21:25 | NUR ---
IN TO ADMINISTER ABX, SEE MAR. PT RESTING IN BED WITH EYES CLOSED. RR EVEN AND UNLBAORED. NO NEEDS IDENTIFIED AT THIS TIME. CALL LIGHT IN REACH.
--- NOTE | 2022-01-23 01:06 | NUR ---
IN TO ADMINISTER MEDICATION, SEE MAR. PT INCONTINENT OF URINE. JORGE L DE LEON IN ROOM TO ASSIST WITH PRISCA CARE. IV INFUSING WNL. PT REQUESTING A SNACK. JELLO AND CRACKERS PROVIDED. PT REPORTS NO OTHER NEEDS AT THIS TIME. CALL LIGHT IN REACH.
--- NOTE | 2022-01-23 01:45 | NUR ---
ASSESSMENT COMPLETE. LUNG SOUND DIMINISHED IN BASES. BOWEL TONES ACTIVE. PT REPORTING PAIN 8/10 IN MID STERNUM WITH COUGHING THAT RADIATES INTO BACK. PLANS TO ADMINISTER PRN PAIN MEDICATION. IV INFUSING WNL. PT REPORTS NO OTHER NEEDS AT THIS TIME. CALL LIGHT IN REACH. BED ALARM ON.
--- NOTE | 2022-01-23 01:58 | NUR ---
PRN PAIN MEDICATION ADMINISTERED, SEE MAR.
--- NOTE | 2022-01-23 02:54 | NUR ---
PT CPOX ALARMING, SPO2 84%. PT REPOSITIONED AND NEW FINGER PROBE PLACED. SPO2 RISES TO 93%. NO OTHER NEEDS AT THIS TIME. CALL LIGHT IN REACH.
--- NOTE | 2022-01-23 09:05 | NUR ---
PT HAD PRISCA CARE PERFORMED, NEW BRIEF, HAIR BRUSHED, AMULATED FROM BED TO CHAIR 1PA/FWW, STEADY ON FEET. LINENS CHANGED, SET UP FOR BREAKFAST. PT ATE TWO BITES OF FOOD AND COMPLAINED IT MADE HER STOMACH HURT. RN NOTIFIED. PT ATE CRACKERS & COFFEE. BELONGINGS/CALL LIGHT IN REACH.
--- NOTE | 2022-01-23 13:47 | NUR ---
PT IS ALERT, SITTING IN CHAIR WITH VOID BAG IN LAP. PT SAID SHE IS NOT FEELING WELL. HAD PRAYER AND WILL FOLLOW
--- NOTE | 2022-01-23 14:03 | NUR ---
ROUNDING ON PT. SHE C/O EPIGASTRIC PAIN THAT IS INTERMITTENT. ADMIN. PERCOCET. SHE IS FORGETFUL AND REPEATEDLY ASKS WHAT IS WRONG. PT. REORIENTED AND ASSESSED. NEURO ASSESSMENT REMAINS UNCHANGED. WILL CONTINUE TO MONITOR. LEFT RESTING WITH CALL LIGHT IN REACH.
--- NOTE | 2022-01-23 15:10 | NUR ---
PT. C/O 10/26 PAIN THAT IS UNRELIEVED WITH PERCOCET. PAIN IS NOW IN THE LEFT CHEST AND RADIATING TO HER BACK. SHE C/O SOB. 02 SAT IS 93% ON RA AND RR IS 21. MD UPDATED AND NEW ORDERS GIVEN. WILL CONTINUE TOMONITOR.
--- NOTE | 2022-01-23 17:30 | NUR ---
ROUNDING ON PT. SHE IS TEARFUL. WHEN ASKED WHAT IS WRONG SHE STATES "I WAS A TERRIBLE MOM!" PT CONSOLED AND LISTENED TO. WILL CONTINUE TO MONITOR.
--- NOTE | 2022-01-23 18:14 | NUR ---
CALLED WITH CRITICAL LAB VALUE. EKG ORDERED.
--- NOTE | 2022-01-23 19:20 | NUR ---
RECIEVED REPORT FROM LAM GARZA. PT IS LAYING IN BED ALERT TALKING TO DAUGHTER ON PHONE. PT REPORTS NO NEEDS AT THIS TIME. CALL LIGHT WITHIN REACH.
--- NOTE | 2022-01-23 20:30 | NUR ---
IN PT ROOM FOR ASSESSMENT AND TREE WORKER. PT STATES SHE IS HAVING INCREASED EPIGASTRIC PAIN AND NAUSEA. CALLED JOSE ALFREDO STUBBS AND NEW ORDERS PLACED. EMESIS BAG IN HAND, COLD RAG PLACED ON HEAD, PT BOOSTED IN BED. PT HAS RESIDUAL LEFT SIDED WEAKNESS FROM PREVIOUS CVA. PT IS ORIENTED TO SELF ONLY, REORIENTATION PROVIDED FOR PLACE, EVENT, DATE/TIME. PULSES PRESENT THROUGHOUT. LUNGS ARE DIMINISHED IN BASES W/WHEEZES IN UPPER LOBES. PT IS ON RA W/O2 >90%. NO SIGNS OF SKIN BREAKDOWN AT THIS TIME. CALL LIGHT WITHIN REACH.
--- NOTE | 2022-01-23 22:20 | NUR ---
PT INCREASING ANXIETY. IN ROOM FOR CALMING OF PT AND CREATING THERAPEUTIC MILIEU. CONTINUOUS FLUIDS STARTED, IV FLUSHES WITH EASE AND WNL. PROTONIX AND PHENERGEN GIVEN, PT TOLERATED WELL. PT ANXIETY DECREASE WITH NURSE AT BEDSIDE. DEPENDS CHANGED D/T INCONTINENCE, PT INCONTINENT DURING BED CHANGE WELL. PUREWICK PLACED W/IMMEDIATE OUTPUT. PRISCA CARE PERFORMED. PT STATES NO NAUSEA AND HEARTBURN IMPROVING AT THIS TIME. CALL LIGHT WITHIN REACH, NO FURTHER NEEDS AT THIS TIME.
--- NOTE | 2022-01-24 00:31 | NUR ---
pt SPOT CHECKED, SPO2 LOW 90'S, HR 80'S. TELE#[address] pt BRIEFLY AWOKE. DENIED NEEDS OR CONCERNS, CALL LIGHT IN REACH AND BED ALARM ON FOR SAFETY. WILL CONTINUE TO MONITOR. RR EVEN AND UNLABORED, ON RA.
--- NOTE | 2022-01-24 02:39 | NUR ---
IN PT ROOM FOR ASSESSMENT AND PT REPORTS WETNESS. PUREWICK IN PLACE AND WORKING EFFICIENTLY, 1100 OUTPUT AND DRY DEPENDS. SCD'S IN PLACE. NO ACUTE CHANGES FROM PREVIOUS ASSESSMENT. PT IS NOW ORIENTED TO ALL BUT DATE/TIME/EVENT, BUT NOW NOWS WHERE SHE IS. NO ACUTE CHANGES FROM PREVIOUS ASSESSMENT, LUNG WHEEZING HEARD INSPIR AND EXPIR. PULSE OX SHOWED 88%, PLACED PT ON 1 L O2. PT RESTING IN BED AND REPORTS NO PAIN OR NAUSEA AT THIS TIME. BED ALARM ON, CALL LIGHT WITHIN REACH, NO FURTHER NEEDS AT THIS TIME. DOOR AND CURTAIN LEFT OPEN FOR PT COMFORT.
--- NOTE | 2022-01-24 04:15 | NUR ---
PT RESTING W/EYES CLOSED. RESPIRATIONS ARE EVEN AND UNLABORED, NO SIGNS OF DISTRESS. CALL LIGHT WITHIN REACH.
--- NOTE | 2022-01-24 06:30 | NUR ---
IN TO GET VS, CHANGED PUREWICK AND ATTENDS,, NO FURTHER NEEDS AT THIS TIME
--- NOTE | 2022-01-24 06:45 | NUR ---
IN PT ROOM W/CATHODIC PROTECTION TECHNICIAN JERAMIE FOR CHANGING OF PUREWICK, VS, AND I/O'S. PT STATES CHRONIC BACK PAIN POST SX. PT STATED SHE DOES NOT LIKE PAIN MEDICATION, ICE PACK PROVIDED AND PLACED BEHIND BACK, AND PT BOOSTED IN BED. PT STATES NO NAUSEA AT THIS TIME AND SIGNIFICANT IMPROVEMENT IN HEARTBURN. CALL LIGHT WITHIN REACH, BED ALARM ON, PT RESTING AT THIS TIME W/NO FURTHER NEEDS.
--- NOTE | 2022-01-24 08:00 | NUR ---
REPORT RECEIVED FROM NIGHT RN AND PT. CARE RESUMED. PT. IS DROWSY AND AWAKENS EASILY TO VOICE. ORIENTED TO SELF AND PLACE. SHE C/O CHRONIC BACK PAIN. ADMIN PAIN MED. ASSESSMENT COMPLETED. MEDS ADMINISTERED. PT. ASSISTED WITH TRANSFER AND BREAKFAST. LEFT RESTING WITH CALL LIGHT IN REACH AND CURTAIN OPEN.
--- NOTE | 2022-01-24 10:05 | NUR ---
PER AM MEETING, POSSIBLE DISCHARGE TODAY. NO CHANGE IN DISCHARGE PLAN AT THIS TIME.
[2022-01-24] MEDS ORDERED: OXYCODONE-ACET1 EAC1 PO (11:47)
[2022-01-24] MEDS ORDERED: CEFDINIR300 MG PO (11:48)
[2022-01-24] MEDS ORDERED: POTASSIUM CHLO20 ME1 PO (11:49)
[2022-01-24] MEDS ORDERED: LASIX20 MG PO (11:51)
--- NOTE | 2022-01-24 12:07 | NUR ---
PT ASLEEP, DID NOT DISTURB
--- NOTE | 2022-01-24 12:24 | EKG ---
[facility] [address] [place] [address] Signed Sinus rhythm with occasional premature ventricular complexes Minimal voltage criteria for LVH, may be normal variant ( Sokolow-Sanchez ) Nonspecific T wave abnormality Abnormal ECG When compared with ECG of 12-JUN-2021 16:05, premature ventricular complexes are now present Nonspecific T wave abnormality no longer evident in Inferior leads QT has shortened Confirmed by Cherelle Carmona MD () on 01/21/2022 8:57:22 AM Also confirmed by Cherelle Carmona MD (), photograph editor Adriano Oh () on 01/21/2022 10:20:10 AM Electronically Signed By: CHERELLE CARMONA MD 01/21/22 0857 Electronically Signed By: CHERELLE CARMONA MD 01/21/22 1020 Electronically Signed By: CHERELLE CARMONA MD 01/24/22 1224 PATIENT NAME: DANIEL EVANS Electrocardiogram DATE OF : 54 PHYSICIAN: CHERELLE CARMONA MD REPORT #: [id number] REPORT IS CONFIDENTIAL AND NOT TO BE RELEASED WITHOUT AUTHORIZATION
--- NOTE | 2022-01-24 12:28 | NUR ---
ALL DISCHARGE INSTRUCTIONS REVIEWED AND QUESTIONS ANSWERED. BROTHER CALLED FOR RIDE. IV REMOVED BY MAORI LIAISON ADVISER.
--- NOTE | 2022-01-25 06:56 | EKG ---
[facility] [address] [facility] [address] [place] [address] Signed Sinus rhythm with occasional premature ventricular complexes Nonspecific ST and T wave abnormality Abnormal ECG When compared with ECG of 20-JAN-2022 19:42, Nonspecific T wave abnormality now evident in Inferior leads Confirmed by MAK FLYNN MD ([id number]) on 01/25/2022 6:56:32 AM Electronically Signed By: MAK FLYNN MD 01/25/22 0656 PATIENT NAME: DANIEL EVANS Electrocardiogram DATE OF : 54 PHYSICIAN: MAK FLYNN MD REPORT #: [id number] REPORT IS CONFIDENTIAL AND NOT TO BE RELEASED WITHOUT AUTHORIZATION
--- NOTE | 2022-01-25 06:57 | EKG ---
[facility] [address] [place] [address] Signed Normal sinus rhythm Possible Inferior infarct , age undetermined Abnormal ECG When compared with ECG of 23-JAN-2022 15:21, (Unconfirmed) premature ventricular complexes are no longer present Confirmed by MAK FLYNN MD ([id number]) on 01/25/2022 6:57:25 AM Electronically Signed By: MAK FLYNN MD 01/25/22 0657 PATIENT NAME: DANIEL EVANS Electrocardiogram DATE OF : 54 PHYSICIAN: MAK FLYNN MD REPORT #: [id number] REPORT IS CONFIDENTIAL AND NOT TO BE RELEASED WITHOUT AUTHORIZATION
--- NOTE | 2022-01-29 17:20 | PATH ---
[facility] [address] [place], [place] [address] Signed THIS IS AN ADDENDUM REPORT SPECIMEN(S): A PYLORUS BIOPSY SPECIMEN(S): B ANTRUM BIOPSY SPECIMEN(S): C STOMACH BIOPSY SPECIMEN SOURCE: A. PYLORUS BIOPSY B. ANTRUM BIOPSY C. STOMACH BIOPSY CLINICAL HISTORY: History of metastatic cancer. Post-op: Hiatal hernia, mild gastritis, mass at GE junction. FINAL PATHOLOGIC DIAGNOSIS: A. Pylorus biopsy: - Benign duodenal mucosa, negative for specific diagnostic abnormality. - Negative for pathologic inflammation. B. Antrum biopsy: - Benign gastric-type mucosa with focal slight chronic inflammation. - Negative for evidence of Helicobacter organisms on routine HE stained sections. C. 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 - See comment. 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 Microsatellite testing by immunohistochemistry is pending and will be reported in an addendum. Diagnostic notification to the office of Dr. Mccoy is initiated by Dr. Rosales and will be recorded separately. As part of [facility] Quality Improvement Program, this case was reviewed by another member of our pathology staff. JVR:ADDIE:karley:[id number] PATIENT NAME: DANIEL EVANS PATHOLOGY DATE OF : 54 REPORT #: [id number] PHYSICIAN: [facility] PATHOLOGY PCP: MIGUEL MCCOY MD REPORT IS CONFIDENTIAL AND NOT TO BE RELEASED WITHOUT AUTHORIZATION [facility] [address], [place] [address] Signed MICROSCOPIC EXAMINATION: Histologic sections of all submitted blocks are examined by light microscopy. These findings, together with the gross examination, support the pathologic diagnosis. Immunostains are performed with appropriate controls on block (C1) and show the following: - CK7: Positive in area of concern. - CDx2: Positive in tumor nuclei. - CK20: Positive in rare tumor cells. - P63: Focal weak nuclear expression in tumor cells. - CK5: Negative in tumor cells. - P504s: Positive in tumor cells. - CK19: Positive in tumor cells. JVR:[facility] GROSS DESCRIPTION: A. The specimen, labeled and designated "McMurphy, channel of pylorus biopsy," is received in formalin and consists of one dennis soft tissue fragment, 0.4 cm. Entirely submitted in (A1). B. The specimen, labeled and designated "McMurphy, antrum biopsy," is received in formalin and consists of one dennis soft tissue fragment, 0.2 cm. Entirely submitted in (B1). C. The specimen, labeled and designated "McMurphy, hiatal hernia stomach biopsy," is received in formalin and consists of eight dennis soft tissue fragments, each measuring 0.1 to 0.2 cm. Entirely submitted in (C1). JS (under the direct supervision of a pathologist) The Gross Description was prepared using a voice recognition system. The report was reviewed for accuracy; however, sound-alike word errors, addition and/or deletions may occur. If there is any question about this report, please contact Client Services. ADDITIONAL NOTES: Immunohistochemical and/or in situ hybridization studies were performed on this case with the appropriate positive controls that react as expected. This test was developed and its performance characteristics determined by [facility]. It has not been cleared or approved by the U.S. Food and Drug Administration. The FDA has determined that such clearance or approval is not necessary. This test is used for clinical purposes. It should not be regarded as investigational or for research. [facility] is certified under the Clinical Laboratory Improvement PATIENT NAME: DANIEL EVANS PATHOLOGY DATE OF : 54 REPORT #: [id number] PHYSICIAN: LASHELLBIG [facility] PATHOLOG[facility] PCP: MIGUEL MCCOY MD REPORT IS CONFIDENTIAL AND NOT TO BE RELEASED WITHOUT AUTHORIZATION [facility] [address], [place] [address] Signed Amendments of 1988 (CLIA) as qualified to perform high complexity clinical laboratory testing. This assay has not been validated for specimens that have been decalcified. PERFORMING LABORATORY: The technical component was performed by [facility], [address] [place] [id number] (CLIA# [id number]). Professional interpretation was performed by [facility], [address] [place] [address], [place] [address] (CLIA#: [id number]). COMMENT: Tumor cells show no loss of nuclear expression of MMR proteins. This correlates with a low probability of microsatellite instability. However, if there is a high clinical suspicion for Vieyra syndrome (hereditary non-polyposis colorectal carcinoma syndrome) in this patient, additional testing should be considered. Please contact [facility] if such testing is indicated. LAYO:karley ADDENDUM MICROSCPOIC EXAMINATION: A panel of four antibodies is selected which will detect 95% of microsatellite unstable carcinomas. Testing is performed at the request of Erich Rosales. Block: C1. Recut HE slide is prepared from the block. The presence of neoplastic glands and non-neoplastic internal control glands or stroma is confirmed. Internal control cells for MLH1, MSH2, PMS2 and MSH6 are positive. Neoplastic gland cells show the following: - MLH1: Positive. - MSH2: Positive. - MSH6: Positive. - PMS2: Positive. Technical testing is performed at [facility], [place], [place]. LAYO:karley ADDITIONAL NOTES: Immunohistochemical and/or in situ hybridization studies were performed on this case with the appropriate positive controls that react as expected. This test was developed and its performance characteristics determined by [facility]. It has not been cleared or approved by the U.S. Food and Drug Administration. The FDA has determined that such clearance or approval is not necessary. This test is used for clinical purposes. It should not be regarded PATIENT NAME: DANIEL EVANS PATHOLOGY DATE OF : 54 REPORT #: [id number] PHYSICIAN: DIMAS PATHOLOGY PCP: MIGUEL MCCOY MD REPORT IS CONFIDENTIAL AND NOT TO BE RELEASED WITHOUT AUTHORIZATION [facility] [address] [place] [id number] Signed as investigational or for research. [facility] is certified under the Clinical Laboratory Improvement Amendments of 1988 (CLIA) as qualified to perform high complexity clinical laboratory testing. PERFORMING LABORATORY: The technical preparation was performed by [facility], [address] [place] [address] (CLIA#: [id number]). Professional interpretation was performed by [facility] - [facility], [address] [place] [address] (CLIA#: [id number]). REASON FOR ADDENDUM: To report results of additional testing. ADDENDUM FINAL PATHOLOGIC DIAGNOSIS: C. Stomach, , invasive adenocarcinoma, microsatellite instability testing by IHC: - MLH1: Intact nuclear expression. - MSH2: Intact nuclear expression. - MSH6: Intact nuclear expression. - PMS2: Intact nuclear expression. INTERPRETATION: Normal pattern. Diagnostician: Erich Rosales MD Pathologist Electronically Signed 01/29/2022 Copies: ~ PATIENT NAME: DANIEL EVANS PATHOLOGY DATE OF : 54 REPORT #: [id number] PHYSICIAN: [facility] PCP: MIGUEL MCCOY MD REPORT IS CONFIDENTIAL AND NOT TO BE RELEASED WITHOUT AUTHORIZATION
== END 2022-01-24 13:12 | disposition home or self-care (01) | DRG 640 ==
LOC: ED 18:04 → MS 01-21 00:50
PROVIDERS: Colon & Rectal Surgery; ADMIT Family Medicine; ATTEND Family Medicine
PROC: 0DB78ZX Excision of Stomach, Pylorus, Via Natural or Artificial Opening Endoscopic, Diagnostic (ICD-10-PCS; 2022-01-22)
PROC: 0DB98ZX Excision of Duodenum, Via Natural or Artificial Opening Endoscopic, Diagnostic (ICD-10-PCS; 2022-01-22)
PROC: 0DB68ZX Excision of Stomach, Via Natural or Artificial Opening Endoscopic, Diagnostic (ICD-10-PCS; principal; 2022-01-22 08:15)
DX: E83.52 Hypercalcemia (principal); J18.9 Pneumonia, unspecified organism; N39.0 Urinary tract infection, site not specified; N17.9 Acute kidney failure, unspecified; C16.9 Malignant neoplasm of stomach, unspecified; Z20.822 Contact with and (suspected) exposure to COVID-19; E87.6 Hypokalemia; E83.42 Hypomagnesemia; B96.20 Unspecified Escherichia coli [E. coli] as the cause of diseases classified elsewhere; I50.9 Heart failure, unspecified; F17.210 Nicotine dependence, cigarettes, uncomplicated; Z71.6 Tobacco abuse counseling; J44.9 Chronic obstructive pulmonary disease, unspecified; Z96.651 Presence of right artificial knee joint; Z87.19 Personal history of other diseases of the digestive system; I25.2 Old myocardial infarction; Z90.49 Acquired absence of other specified parts of digestive tract; Z98.890 Other specified postprocedural states; Z88.0 Allergy status to penicillin; Z88.5 Allergy status to narcotic agent; Z79.899 Other long term (current) drug therapy
CPT/HCPCS: 00731; 36415; 70470; 71045; 71260; 74177; 80048; 80053; 81001; 82105; 82310; 82330; 82378; 83690; 83735; 83880; 84100; 84443; 84484; 85025; 85060; 86301; 86304; 87040; 87077; 87088; 87186; 87502; 88305; 88341; 88342; 93005; 93010; 97163; 97535; 99285-25; A9270; C9113; J0456; J0630; J0696; J1100; J1650; J1940; J2270; J2405; J2550; J2704; J2765; J3010; J3475; J7030; J7060; Q9967; U0003

== ENCOUNTER 2022-01-30 04:31 | Inpatient (IN) | payer MEDICARE, OTHER ==
[~2022-01-30] VITALS: Ht 167.6 cm; Wt 69.9 kg
[~2022-01-30 04:31] MED LIST changes: +CEFDINIR300 MG PO; +OXYCODONE-ACET1 EAC1 PO; +POTASSIUM CHLO20 ME1 PO
--- OUTSIDE RECORDS SUMMARY | 2022-01-30 04:34 | XMS ---
PreManage Notification: DANIEL EVANS Security Motion Picture Narrator Events 1 event(s) in the past 18 months Most recent security events: Elopement at [facility] 12/24/2021 18:26 - Patient eloped before treatment completed. - Patient with suicidal and/or homicidal ideations eloped. - Patient eloped with IV in place. Details: Patient LWOB CRITERIA MET - [facility] - 2 Visits in 30 Days - Group Notification CARE PROVIDERS MIGUEL MCCOY [facility] 05/21/2020-Current [facility] [phone] [facility] KAZ Ramos PHONE: [phone] Kerrie Gabriel Fishing Lure Assembler/Electronics Engineering Technician 11/16/2021-Current PHONE: [phone] Tania has no Care Guidelines for this patient. Vel VISIT COUNT (12 MO.) 6 FLOR Kauffman TOTAL 6 NOTE: Visits indicate total known visits. ED/UCC VISIT TRACKING (12 MO.) 01/30/2022 04:31 [facility] TYPE: Emergency COMPLAINT: - PAIN 01/20/2022 18:04 [facility] TYPE: Emergency COMPLAINT: - WEAKNESS 12/24/2021 18:26 [facility] TYPE: Emergency COMPLAINT: - FALL BACK PAIN 06/12/2021 14:33 [facility] TYPE: Emergency COMPLAINT: - FALL DIAGNOSES: - Cerebral infarction, unspecified - Other long term care administrator (current) drug therapy - Non-ST elevation (NSTEMI) myocardial infarction - Weakness - Heart failure, unspecified - Nicotine dependence, unspecified, uncomplicated - Allergy status to narcotic agent - Old myocardial infarction - Allergy status to penicillin 04/03/2021 15:06 [facility] TYPE: Emergency COMPLAINT: - WEAKNESS DIAGNOSES: - [facility] (current) use of inhaled steroids - Chronic obstructive pulmonary disease, unspecified - Allergy status to penicillin - Old myocardial infarction - Contact with and (suspected) exposure to COVID-19 - Allergy status to narcotic agent - Other long-term (current) drug therapy - Weakness - Heart failure, unspecified - Nicotine dependence, unspecified, uncomplicated 03/26/2021 15:26 [facility] TYPE: Emergency COMPLAINT: - WEAKNESS, FEEL BAD, FATIGUED DIAGNOSES: - Allergy status to narcotic agent - Heart failure, unspecified - Allergy status to penicillin - Weakness - Patient's noncompliance with other medical treatment and regimen - Nicotine dependence, unspecified, uncomplicated INPATIENT VISIT TRACKING (12 MO.) 01/21/2022 00:50 [facility] TYPE: Medical Surgical COMPLAINT: - SEVERE HYPERCALCEMIA, LIKELY MALIGNANCY DIAGNOSES: - Tobacco abuse counseling - Hypomagnesemia - Heart failure, unspecified - Presence of right artificial knee joint - Other specified postprocedural states - Allergy status to narcotic agent - Hypercalcemia - Hypokalemia - Contact with and (suspected) exposure to COVID-19 - Acute kidney failure, unspecified - Old myocardial infarction - Other long term care administrator (current) drug therapy - Unspecified Escherichia coli [E. coli] as the cause of diseases classified elsewhere - Nicotine dependence, cigarettes, uncomplicated - Personal history of other diseases of the digestive system - Pneumonia, unspecified organism - Acquired absence of other specified parts of digestive tract - Allergy status to penicillin - Urinary tract infection, site not specified - Chronic obstructive pulmonary disease, unspecified [email or web address]
--- NOTE | 2022-01-30 08:30 | NUR ---
BEDSIDE REPORT RECEIVED FROM, IZABELA RN, ALL QUESTIONS ANSWERED. TWO NURSE SKIN ASSESSMENT COMPLETE. PT ORIENTED TO ROOM AND CALL LIGHT. BED ALARM ON.
--- NOTE | 2022-01-30 08:30 | NUR ---
ADMISSION ASSESSMENT COMPLETE. PT AWAKE, ALERT AND ORIENTED, FORGETFUL AT TIMES. PT C/O BACK PAIN, REPORTED TO THIS RN PAIN MEDICATION GIVEN PRIOR TO ADMISSION. TELE ON, VSS. PT FURTHER NEEDS AT THIS TIME. CALL LIGHT IN REACH.
--- NOTE | 2022-01-30 08:52 | NUR ---
MED REC COMPLETE
--- NOTE | 2022-01-30 10:30 | NUR ---
Spoke with Radha and she cont. to live in her Travel trailer with her dog. A friend has been staying there, she states he was mean to her dog and she did not feel well due to worsening pain. She called the ambulance and returned to the hospital. She cont. to use a cane and a walker. She feels she is declining due to her cancer. She did not follow up with oncology and can't remember if she had an appointment. She is having difficulty with her memory and is not able to remember her daughters last name. She would like her son and daughter listed as her emergency contacts. She would like to speak with Dr. Penny. Will contact the ca center to see if they have a referral for this pt. Also will check if pt qualifies for LTC medicaid for cg in the home or for placement.
--- NOTE | 2022-01-30 13:00 | NUR ---
Spoke with Maribeth from [facility]. PT has intermediate accountant care medicaid in place and qualifies for a cg in the home or placement. Per Maribeth, pt has not been able to keep a cg in the home. Called and spoke with the [place] [facility] and asked if they have received a referral for this pt. They did not. They can see some notes from Dr. Cantu, but referral was not made. I will let Dr. Araujo know as he would like a referral made. Per the [place] clinic, they do not have any availability until the second week of February.
--- NOTE | 2022-01-30 19:15 | NUR ---
RECEIVED REPORT FROM EZEKIEL GARZA. PT RESTING IN BED W/EYES CLOSED. RESPIRATIONS ARE EVEN AND UNLABORED, NO SIGNS OF DISTRESS. CALL LIGHT WITHIN REACH.
--- NOTE | 2022-01-30 22:40 | NUR ---
IN PT ROOM FOR HOSIERY MENDER, VS, I/O'S, AND ASSESSMENT. PT RESTING W/EYES CLOSED, ALERT TO VOICE. PT IS NOT ORIENTED TO ANYTHING AT THIS TIME, BED ALARM ON. PT DOES NOT FOLLOW DIRECTIONS WELL. 2P HEAVY ASSIST TO BEDSIDE COMMODE, PT STATES SHE NEEDS TO USE BATHROOM. LARGE BM. PRISCA CARE PERFORMED, NEW DEPENDS IN PLACE. PT NOW BACK IN BED. SLIGHT BLANCHABLE REDNESS ON BEHIND, BARRIER CREAM APPLIED. PULSES PRESENT THROUGHOUT, LUNGS ARE TIGHT AND DIMINISHED THROUGHOUT, ACTIVE BOWEL TONES X4. PT REPORTS PAIN 10/10 AT THIS TIME, SCHEDULED OXY GIVEN. WARM BLANKET PROVIDED. CALL LIGHT WITHIN REACH. IV FLUIDS INFUSING DIRECTED.
--- NOTE | 2022-01-31 01:25 | NUR ---
PT RESTING W/EYES CLOSED. RESPIRATIONS ARE EVEN AND UNLABORED, NO SIGNS OF DISTRESS, CALL LIGHT WITHIN REACH. IV FLUIDS INFUSING DIRECTED.
--- NOTE | 2022-01-31 03:00 | NUR ---
IN PT ROOM FOR ASSESSMENT. TILTING SAW OPERATOR AND STUDY LEAD ASSISTING PT TO BEDSIDE COMMODE FOR BM. PT 2PA W/FWW. PT LUNGS ARE DIMINISHED THROUGHOUT AND COARSE ON LLL/HENRY. PT NOW ORIENTED ONLY TO SELF. PT IS VERY EMOTIONAL AT THIS TIME EXPRESSING SADNESS STATING "WHAT KIND OF WOMAN AM I?". THERAPEUTIC COMMUNICATION TO CALM PT. PRN OXY AND COMPAZINE GIVEN FOR 7/10 EPIGASTRIC PAIN AND NAUSEA. PT NOW RESTING IN BED.
--- NOTE | 2022-01-31 03:15 | NUR ---
ASSISTED PT UP TO BC W/AUTOMATION QA ANALYST AND FWW. LIGHT BROWN LIQUID BM AND UNMEASURABLE VOID. PRISCA CARE PERFORMED. BARRIER CREAM APPLIED TO BACK END FOR BLANCHABLE REDNESS. PT NOW BACK IN BED, CALL LIGHT WITHIN REACH, NO FURTHER NEEDS AT THIS TIME. PT RESTING W/EYES CLOSED.
--- NOTE | 2022-01-31 05:10 | NUR ---
PT RESTING W/EYES CLOSED. RESPIRATIONS ARE EVEN AND UNLABORED, NO SIGNS OF DISTRESS. CALL LIGHT WITHIN REACH.
--- NOTE | 2022-01-31 09:07 | NUR ---
PT IN BED. VITALS AND IS AND OS COMPLETE. PT IS STILL WORKING ON BREAKFAST. NO FURTHER NEEDS. CALL LIGHT WITHIN REACH
--- NOTE | 2022-01-31 09:22 | NUR ---
MORNING ASSESSMENT COMPLETE. PT RESTING IN BED WITH EYES CLOSED, AWAKENS EASILY. PT STATES PAIN IS MODERATED AT THIS TIME. SCHEDULED OXYCONTIN GIVEN. PT APPEARS DOWN, FLAT AFFECT. LOOKING FORWARD TO FAMILY MEMBERS VISITING TODAY. COARSE LUNG SOUNDS HEARD, PT REQUESTED NICOTINE REPLACEMENT. DENIES FURTHER NEEEDS AT THIS TIME.
--- NOTE | 2022-01-31 10:58 | NUR ---
left message for [facility] to initiate referral to med onc.
--- NOTE | 2022-01-31 11:22 | NUR ---
PER SET UP MOLD TECHNICIANDR. WILLS OFFICE BEEF CATTLE FARM WORKER STATED THAT THEIR OFFICE WILL BE SENDING A REFERRAL TO MED ONC.
--- NOTE | 2022-01-31 11:51 | NUR ---
PT was resting in bed and was alert and oriented. PT is talked a lot about relatives who had , and stated she is looking forward to seeing them soon. Appears to be processing her own mortality but is focusing on the good in her life and the strength of her family. She spoke of the good people she has known and of the welcome she is anticipating after her . Appears to have a strong jovan in the afterlife. Expressed confidence that her family, "would be fine." Prayed for peace, strength, and an awareness of God's presence.
--- NOTE | 2022-01-31 19:46 | NUR ---
REPORT RECEIVED FROM DAY SHIFT RN. PT LYING IN BED RESTING WITH EYES CLOSED. WHITE BOARD UPDATED. CALL LIGHT IN REACH.
--- NOTE | 2022-01-31 20:15 | NUR ---
PT IV PUMP ALARMING. NEW BAG IV FLUIDS PROVIDED. PT RESTING WITH EYES CLOSED. RR EVEN, UNLABORED. CALL LIGHT IN REACH.
--- NOTE | 2022-01-31 22:10 | NUR ---
EVENING ASSESSMENT COMPLETE. SCHEDULED MEDS ADMIN PER EMAR. PT REPORTS MIDDLE CHEST PAIN 10/26. SCHEDULED PAIN MED GIVEN. PT DENIES NAUSEA. ORIENTED TO OWN BIRTHDAY ONLY, COULD NOT TELL ME HER NAME. ORIENTATION PROVIDED. 2PA TO REPOSITION IN BED. ATTENDS CLEAN AND DRY. IVF INFUSING WNL. PT DENIES FURTHER NEEDS. CALL LIGHT IN REACH. BED ALARM FOR SAFETY.
--- NOTE | 2022-02-01 01:05 | NUR ---
PT HEARD MOANING FROM NURSES STATION. IN ROOM TO ASSESS. PT REPORTS BACK PAIN 6/10 AND NAUSEA. PRN FOR N/V AND PAIN ADMIN PER EMAR. ASSITED PT TO REPOSITION IN BED. NO FURTHER NEEDS. BED ALARM FOR SAFETY. CALL LIGHT IN REACH.
--- NOTE | 2022-02-01 02:32 | NUR ---
PT RESTING WITH EYES CLOSED LYING ON LEFT SIDE. RESPIRATIONS EVEN. BED ALARM IN PLACE. CALL LIGHT IN REACH.
--- NOTE | 2022-02-01 03:00 | NUR ---
IV PUMP ALARMING. NEW BAG IV FLUIDS PROVIDED. PT RESTING IN BED, EYES CLOSED. RR EVEN, UNLABORED. CALL LIGHT IN REACH.
--- NOTE | 2022-02-01 05:19 | NUR ---
VS AND I&O COMPLETE. PT REPORTS PAIN IS TOLERABLE AT THIS TIME. DENIES NAUSEA. PT INCONTINENT OF URINE. PRISCA CARE DONE. CLEAN BRIEF IN PLACE. PT ORIENTED X 3 THIS AM. DENIES FURTHER NEEDS. BED ALARM FOR SAFETY.
--- NOTE | 2022-02-01 09:33 | NUR ---
MORNING ASSESSMENT COMPLETE. PT SITTING UP IN RECLINER EATING BREAKFAST AND VISITING WITH FAMILY. PT ALERT, ORIENTED TO PERSON AND PARTIALLY UNDERSTANDS SITUATION. DISORIENTED TO PLACE AND TIME, FORGETFUL. REPORTS PAIN, UNABLE TO RATE. GIVEN SCHEDULED PAIN MEDICATION. DENIES NAUSEA AT THIS TIME. CALL LIGHT IN REACH, FAMILY AT BEDSIDE. DENIES FURTHER NEEDS AT THIS TIME.
--- NOTE | 2022-02-01 10:00 | NUR ---
PT IN CHAIR. VITALS AND IS AND OS COMPLETE. PT FAMILY PRESENT AT BEDSIDE. RN NOTIFIED OF BP. NO FURTHER NEEDS. CALL LIGHT WITHIN REACH
--- NOTE | 2022-02-01 10:44 | NUR ---
PT ASSISTED FROM RECLINER TO BED, 2PA WITH FWW. PT REQUIRES REDIRECTION WITH TRANSFER. PT INCONTINENT OF URINE, CHANGED BRIEF, PRISCA CARE PROVIDED. CALL LIGHT IN REACH. FAMILY AT BEDSIDE.
--- NOTE | 2022-02-01 13:15 | NUR ---
PT RESTING IN BED. VITALS AND IS AND OS COMPLETE. PT BRIEF CHECKED AND CHANGED BY BOTH RN AND WELDING SPECIALIST. PT BOOSTED UP AND SAT UP FOR LUNCH. NO FURTHER NEEDS. CALL LIGHT WITHIN REACH
--- NOTE | 2022-02-01 13:27 | NUR ---
SMALL ENGINE MECHANIC UNABLE TO GET 02 SAT GREATEER THAN 87%, ATTEMPTED O2 SAT ON BOTH HANDS AND MULTIPLE FINGERS, TOES. PT INSTRCUTED THROUGH COUGH AND DEEP BREATHING. O2 SAT TO 88%. PT PLACED ON 1.5 L O2 PER NC, O2 GRADUALLY UP TO 93%. PT REMAINS ON 1.5L NC O2.
--- NOTE | 2022-02-01 16:15 | NUR ---
STRAIGHT CATH PT FOR UA PER VERBAL MD ORDER, STERILE TECHNIQUE USED. PT TOLERATED WELL.
--- NOTE | 2022-02-01 19:01 | EKG ---
[facility] [address] [facility] [place] [address] Signed Normal sinus rhythm Left ventricular hypertrophy with repolarization abnormality ( R in aVL ) Inferior infarct (cited on or before 23-JAN-2022) Abnormal ECG When compared with ECG of 23-JAN-2022 18:19, Questionable change in initial forces of Inferior leads ST elevation now present in Inferior leads ST now depressed in Lateral leads T wave inversion now evident in Lateral leads QT has lengthened Confirmed by SMILEY FRAZIER MD ([id number]) on 02/01/2022 7:01:07 PM Electronically Signed By: SMILEY FRAZIER MD 02/01/221900 PATIENT NAME: DANIEL EVANS Electrocardiogram DATE OF : 54 PHYSICIAN: SMILEY FRAZIER MD REPORT #: [id number] REPORT IS CONFIDENTIAL AND NOT TO BE RELEASED WITHOUT AUTHORIZATION
--- NOTE | 2022-02-01 19:48 | NUR ---
REPORT RECEIVED FROM DAY SHIFT RN . PT AWAKE IN BED VISITING WITH FAMILY. DENIES NEEDS. CALL LIGHT IN REACH.
--- NOTE | 2022-02-01 20:30 | NUR ---
EVENING ASSESSMENT COMPLETE. PT REPORTS BACK PAIN 10/26. SCHEDULED MEDS ADMIN PER EMAR. PT DENIES NAUSEA AT THIS TIME. INCONTINENT OF URINE. BRIEF CHANGED AND PRISCA CARE DONE. BARRIER CREAM USED. 2PA TO REPOSITION IN BED. VISITORS AT BEDSIDE. PT ORIENTED X 3. NO FURTHER NEEDS AT THIS TIME. BED ALARM FOR SAFETY. CALL LIGHT IN REACH.
--- NOTE | 2022-02-01 22:30 | NUR ---
IV IN LEFT ARM NOTED TO BE LEAKING. DC'S WNL. TIP INTACT. COMMUNITY ENGAGEMENT MANAGER RN IN ROOM TO START 22 IN RIGHT FOREARM. PT MARLEN WELL. IVF INFUSING WNL. PT REPOSITIONED WITH 2PA. NO FURTHER NEEDS.
--- NOTE | 2022-02-02 00:24 | NUR ---
PT RESTLESS IN BED. REPORTS NAUSEA AND BACK PAIN 10/26. PRN FOR PAIN AND N/V ADMIN PER EMAR. OFFERED PT ASSIST TO BSC. PT DECLINED. INCONTINENT OF URINE. STAFF ASSIST WITH PRISCA CARE. CLEAN BRIEF PLACED. LINENS CHANGED. 2PA TO REPOSITION IN BED. BED ALARM IN PLACE.
--- NOTE | 2022-02-02 00:56 | NUR ---
PT RESTING IN BED ON LEFT SIDE. RESPIRATIONS EVEN. BED ALARM FOR SAFETY.
--- NOTE | 2022-02-02 02:00 | NUR ---
PT RESTING WITH EYES CLOSED. RESPIRATIONS EVEN. 2L/NC IN PLACE. SpO2 100%. HR 70'S. OXYGEN TITRATED TO 1L/NC.
--- NOTE | 2022-02-02 05:05 | NUR ---
VS AND I&O COMPLETE. PT REPORTS PAIN IS TOLERABLE. DENIES NAUSEA. ASSISTED WITH SIPS OF SODA. INCONTINENT OF URINE. PRISCA CARE DONE BY STAFF. CLEAN BRIEF PLACED. PT ABLE TO PARTICIPATE IN CARES. ORIENTED TO SELF ONLY THIS AM. BED ALARM IN PLACE. CALL LIGHT IN REACH.
--- NOTE | 2022-02-02 07:20 | NUR ---
REPORT RECEIVED FROM KAYLA PÉREZ, ALL QUESTIONS ANSWERED. PT RESTING QUIETLY IN BED WITH EYES CLOSED, RESPIRATIONS EVEN AND UNLABORED. CALL LIGHT IN REACH.
--- NOTE | 2022-02-02 10:39 | NUR ---
MORNING ASSESSMENT COMPLETE. PT SITTING UP AWAKE IN BED EATING BREAKFAST. PT OREINTED TO PLACE AND SELF. HAS SMALL UNDERSTANDING OF HOSPITALIZATION. PT DISORIENTED TO TIME AND EXACT EVENTS. PT TEARFUL REGARDING CANCER DIAGNOSIS. PROVIDED REASSURANCE. BRIEF CHANGED, PERICARE PROVIDED. PT ASSISTED 2 PERSON WITH FWW FROM BED TO CHAIR, REQUIRES CONTINUAL GUIDANCE AND INSTRUCTION. PT ON 1LNC WITH O2 SAT 97%. PT DENIES NEEDS AT THIS TIME. CALL LIGHT IN REACH.
--- NOTE | 2022-02-02 13:41 | NUR ---
PT SITTING UP IN CHAIR. EYES CLOSED, RESPIRATIONS EVEN AND UNLABORED. CALL LIGHT IN REACH.
--- NOTE | 2022-02-02 13:51 | NUR ---
PT IN CHAIR. PT BRIEF CHECKED AND SOILED. BRIEF CHANGED W 2 PA W FWW. PT THEN ASSISTED TO BED. PT REPOS AND SITUATED FOR A NAP. NO FURTHER NEEDS. CALL LIGHT WITHIN REACH
--- NOTE | 2022-02-02 16:50 | NUR ---
PT BRIEF CHANGED, PRISCA CARE PROVIDED. PT ASSISTED 2 PERSON WITH FWW FROM BED TO CHAIR. PT REQUIRES CONTINUAL INSTRUCTION AND REDIRECTION FOR TRANSFER. DINNER AND FRESH ICE WATER PROVIDED. CALL LIGHT IN REACH.
--- NOTE | 2022-02-02 18:31 | NUR ---
PT SITTING UP IN CHAIR TALKING ON PHONE. DENIES NEEDS AT THIS TIME. CALL LIGHT IN REACH.
--- NOTE | 2022-02-02 19:54 | NUR ---
REPORT RECEIVED FROM DAY SHIFT RN. PT SITTING IN RECLINER. 2PA BACK TO BED. ATTENDS DRY. WARM BLANKETS PROVIDED. NO FURTHER NEEDS. BED ALARM FOR SAFETY. CALL LIGHT IN REACH.
--- NOTE | 2022-02-02 22:45 | NUR ---
EVENING ASSESSMENT COMPLETE. SCHEDULED MEDS ADMIN PER EMAR. PT REPORTS BACK/CHEST PAIN /. PAIN MED GIVEN. PT DENIES NAUSEA AT THIS TIME. PT INCONTINENT OF URINE. PRISCA CARE DONE AND CLEAN BRIEF PROVIDED. 2PA TO REPOSITION IN BED. ASSISTED PT WITH SIPS OF WATER. NO FURTHER NEEDS AT THIS TIME. CALL LIGHT IN REACH. BED ALARM FOR SAFETY.
--- NOTE | 2022-02-03 00:38 | NUR ---
MOTOR VEHICLES SUPERVISOR RN IN TO START NEW IV WITH ONE ATTEMPT, PT MARLEN WELL. REPORTS HEARTBURN. PRN ADMIN PER EMAR. PT EXPRESSES FRUSTRATION "JUST LYING IN BED DOING NOTHING." ASSISTED TO TURN TV ON TO MUSIC STATION. NO FURTHER NEEDS AT THIS TIME.
--- NOTE | 2022-02-03 01:32 | NUR ---
IV ABX COMPLETE. MAINTENANCE FLUIDS INFUSING PER ORDER. PT REPORTS NAUSEA. PRN FOR N/V ADMIN IN 20 ML NS INFUSING OVER 12 MINUTES. PT DENIES PAIN WITH INFUSION. LIGHTS OUT AND DOOR CLOSED PER REQUEST. BED ALARM FOR SAFETY.
--- NOTE | 2022-02-03 04:32 | NUR ---
PT RESTING IN BED WITH EYES CLOSED. RESPIRATIONS EVEN. BED ALARM FOR SAFETY.
--- NOTE | 2022-02-03 06:34 | NUR ---
VS AND I&O COMPLETE. PT REPORTS BACK/CHEST PAIN 8/10 AND NAUSEA. PRN FOR PAIN AND NAUSEA ADMIN PER EMAR. PT INCONTINENT OF URINE. PRISCA CARE DONE BY STAFF. BRIEF CHANGED. 2PA TO REPOSITION IN BED. PT ABLE TO PARTICIPATE IN CARES. EMOTIONAL AT TIMES. REASSURANCE PROVIDED. PT ORIENTED TO SELF. BED ALARM FOR SAFETY. CALL LIGTH IN REACH.
--- NOTE | 2022-02-03 07:30 | NUR ---
THIS RN RECEIVED SHIFT REPORT FROM KAYLA PÉREZ. PATIENT RESTING QUIETLY IN BED, EYES CLOSED, RESPIRATIONS ARE REGULAR AND EVEN, CALL LIGHT IN REACH AND BED ALARM IS ON. NO NURSE CARE NEEDS AT THIS TIME.
--- NOTE | 2022-02-03 09:35 | NUR ---
PATIENT CALLED HAVING NAUSEA NAD 7/10 BACK AND CHEST PAIN. PATIENT ALSO INCONTINENT OF STOOL AND URINE. JORGE L ROLLINS HELP THIS RN GET PATIENT CLEANED UP AND DRY. 12.5MG SIVP PROMETHAZINE IN 20MLS NS GIVEN FOR PROTOCOL ZORAIDA ORAL PAIN AND MUSCLE RELAXER GIVEN WELL. PATIENT NOW SITTING UP IN BED AND TRYING TO EAT A LITTLE BREAKFAST. CALL LIGHT IN REACH AND PATIENT AND ALARM IS ON.
--- NOTE | 2022-02-03 09:44 | NUR ---
PT IN BED. RN IN ROOM. PT BRIEF SOILED. BRIEF CHANGED. VITALS AND IS AND OS COMPLETE. NO FURTER NEEDS. CALL LIGHT WITHIN REACH.
--- NOTE | 2022-02-03 12:15 | NUR ---
ROMA FROM [facility] IS CURRENTLY IN GIVING THE PATIENT A NEB TREATMENT. CALL LIGHT IS IN REACH.
--- NOTE | 2022-02-03 12:51 | NUR ---
OVER TO PATIENT ROOM, PATIENT SLEEPING IN CHAIR WITH HEAD BACK. SARAH RN AND THIS RN INTO ROOM. PATIENT AWAKENS EASY TO VOICE. DISCUSSED THAT MD AND STAFF FEEL IT MAY NOT BE APPROPRIATE TO RETURN HOME FOLLOWING THIS VISIT. PATIENT BECOMES TEARFUL, ASKING HOW LONG SHE WOULD BE AT A FACILITY. DISCUSSED THAT WE WOULD RECOMMEND AT LEAST A 21 DAY STAY AT A SNF FOR FURTHER REHAB. PATIENT ASKING TO SPEAK WITH A LINN, BUT SHE DOES NOT KNOW HER NUMBER. ASKED IF PATIENT WOULD LIKE ME TO DISCUSS IT FURTHER WITH HER SON KARI, PATIENT AGREES. ATTEMPTED TO CONTACT KARI, NO ANSWER AND VOICEMAIL FULL. WILL CONTINUE TO ATTEMPT TO CONTACT.
--- NOTE | 2022-02-03 12:53 | NUR ---
THIS RN AND BENTON FROM CASE MANAGEMENT IN TO TALK TO PATIENT. THIS RN CUT UP PATIENT'S FOOD FOR HER AND HELP HER SET UP TO EAT. BENTON OBTAINED INFORMATION TO CONTACT FAMILY MEMBERS TO TRY AND WORK OUT SOME POSSIBLE PLACEMENT OPTIONS SHOULD THE PATIENT NEED IT. PATIENT EATING LUNCH. CALL LIGHT IS IN REACH.
--- NOTE | 2022-02-03 14:49 | NUR ---
PT SLEEPING, DID NOT DISTURB. WILL CHECK BACK
--- NOTE | 2022-02-03 14:50 | NUR ---
RECVD CALL BACK FROM PATIENT SON KARI. DISCUSSED FURTHER PLACEMENT WITH KARI AT THIS TIME THE MD AND STAFF FEEL THE PATIENT IS NOT STRONG ENOUGH TO CARE FOR HERSELF AT HOME. KARI STATES THAT THE LAST TIME HE SPOKE WITH HIS MOTHER ABOUT THE SITUATION, THE PATIENT WANTED TO RECV BIOPSY RESULT AND SPEAK WITH ONCOLOGY PRIOR TO MAKING A DECISION ON PLACEMENT. DISCUSSED WITH KARI THAT NOW THAT SHE HAS MISSED HER APPOINTMENT WITH ONCOLOGY TODAY IT WILL BE DIFFICULT FOR HER TO GET BACK IN BEFORE THE NEW YEAR. ADVISED I WILL ATTEMPT TO GET A COPY OF THE PATIENT BIOPSY RESULTS TO DISCUSS WITH HER, BUT HAVE ASKED KARI TO CONTACT HIS MOTHER KARI TO DISCUSS PLACEMENT SHE HAS ASKED. KARI STATES HE WILL CALL HER AFTER WORK THIS EVENING AND SPEAK WITH HIS EMPLOYER ABOUT LEAVE PAPERWORK SO THAT HE CAN BE AVAILABLE TO HELP.
--- NOTE | 2022-02-03 16:24 | NUR ---
PATIENT BOWEL PREP MEDS HELD PATIENT HAS HAD MULTIPLE BOWEL MOVEMENTS ALREADY TO DAY. EDGE SETTER'S IN CHANGING AND WASHING PATIENT UP AT THIS.
--- NOTE | 2022-02-03 16:30 | NUR ---
IN ROOM TO CHECK ON PT. PT IN CHAIR. BRIEF CHECKED AND HEAVILY SOILED. TUBE SIZER AND CUTTER OPERATOR NOTIFIED TO ASSIST. UPON ENTERING ROOM W OTHER TUBE SIZER AND CUTTER OPERATOR, PT STATED THAT SHE NEEDED TO VOID AGAIN. PT ASSISTED TO BSC USING FWW W 2 PA. PT TO CALL WHEN COMPLETE PER PT REQ. PT CALL TO NOTIFY THAT SHE IS DONE VOIDING. PT CLEANED UP, NEW BRIEF, AND NEW GOWN PUT ON PT. PT ASSISTED BACK TO BED FROM BSC. WARM BLANKETS PROVIDED. NO FURTHER NEEDS. CALL LIGHT WITHIN REACH.
--- NOTE | 2022-02-03 19:17 | NUR ---
REPORT RECEIVED FROM DAY SHIFT RN. PT LYING IN BED RESTING WITH EYES CLOSED. RESPIRATIONS EVEN. CALL LIGHT IN REACH. BED ALARM FOR SAFETY.
--- NOTE | 2022-02-03 22:00 | NUR ---
2 pa. PATIENT PLACED ON BED RAMOS. DID NOT ABLE TO URINATE OR BM. PATIENT NOTICED PASSED GAS. PATIENT ALREADY WET ON HER ATTEND. PATIENT BOOSTED UP IN BED.
--- NOTE | 2022-02-03 22:17 | NUR ---
SCHEDULED MEDS PROVIDED. BRIEFS CHANGED AND PT REPOSITIONED. NO OTHER NEEDS AT THIS TIME. CALL LIGHT IN REACH.
--- NOTE | 2022-02-03 23:19 | NUR ---
EVENING ASSESSMENT COMPLETE. IV ABX COMPLETE. MAINTENANCE FLUID INFUSING PER ORDER. ASSISTED PT TO REPOSITION IN BED. SIPS OF WATER PROVIDED. ATTENDS DRY. PT DENIES NEEDS AT THIS TIME. CALL LIGHT IN REACH. BED ALARM FOR SAFETY.
--- NOTE | 2022-02-04 00:10 | NUR ---
CALL LIGHT ANSWERED. CHANGED INCONTINENT PRISCA PAD.
--- NOTE | 2022-02-04 03:35 | NUR ---
PT RESTING IN BED WITH EYES CLOSED LYING ON RIGHT SIDE. RESPIRATIONS EVEN. CALL LIGHT INR EACH. BED ALARM FOR SAFETY.
--- NOTE | 2022-02-04 08:20 | NUR ---
PT SITTING IN CHAIR IN ROOM. MORNING MEDICATION GIVEN AND ASSESSMENT COMPLETED. PT COMPLAINT OF 9/10 BACK PAIN AND NAUSEA. PT. VOMITED 50ML BILE. NAUSEA MEDICATION GIVEN. SECOND IV PLACED PT LWRIST IV CONTINUED TO STATE DISTAL OCCLUSION. PT TOLERATED WELL. PT DENIES FURTHER NEEDS AT THIS TIME. RESPIRATIONS EVEN AND UNLABORED, WAITING FOR BREAKFAST.
--- NOTE | 2022-02-04 09:12 | NUR ---
Patient sitting in chair eating breakfast. Patient agrees to go to a care facillity as long as she can bring her dog. ALSO PATIENT MUST WORK WITH PT TO SHOW THAT SHE IS A ONE PERSON ASSIST BEFORE [facility] WILL TAKE THE PATIENT.
--- NOTE | 2022-02-04 10:06 | NUR ---
PT IN CHAIR. PT VITALS COMPLETE. PT ASSIST TO BSC STAND PIVOT W FWW 1 PA. PT CO NAUSEA. RN NOTIFIED. PT ASSISTED BACK TO CHAIR. EMESIS BAG IN HAND. NO FURTHER NEEDS. CALL LIGHT WITHIN REACH
--- NOTE | 2022-02-04 11:30 | NUR ---
PT IN CHAIR. PT UP TO BSC BY OTHER GRADES 7 AND 8 VISITING TEACHER IN ROOM. PT THEN INTO SHOWER CHAIR FOR SHOWER. PT SHOWERED. NEW SOCKS AND GOWN PROVIDED. PT HAIR COMBED. PT BACK IN BED AND GIVEN WARM BLANKETS. PT TAKING NAP NOW. NO FURTHER NEEDS. CALL LIGHT WITHIN REACH
--- NOTE | 2022-02-04 12:31 | NUR ---
PATIENT JEANNINE IS UP AND RUNNING AND IN VISITING WITH THE PATIENT. CALL LIGHT IN REACH AND BED ALARM IS ON.
--- NOTE | 2022-02-04 12:37 | NUR ---
pt req to use bsc. pt assisted to bsc w fww. pt has another liq bm. pt back to bed. pt sat up in bed w lunch tray on her table across lap. no further needs. call light within reach
--- NOTE | 2022-02-04 12:45 | NUR ---
MET TO DISCUSS THE PATIENT'S DISCHARGE PLAN FOR A SAFE DISCHANGE TO HOME VS ASSISTIVE LIVING FACILITY WITH HOSPICE.SON CALLED TO BE PART OF CONVERSATION. PATIENT EXTERMLY WORRIED ABOUT BEING ALLOWED TO HAVE HER DOG AT THE ASSISTED LIVING FACILITY. SON SAYS HE WOULD TALK WITH HIS FAMILY AND MOTHER AND COME UP WITH A DISCHARGE PLAN THAT WILL MEET HIS MOTHERS NEEDS. KARI THE PATIENT'S SON WILL CALL CASE MANAGEMENT LATER TODAY TO DICUSS WHAT THE FAMILY HAS CHOSEN FOR THE PATIENT'S DISCHARGE PLAN.
--- NOTE | 2022-02-04 13:22 | NUR ---
PT IN BED RESTING. VITALS AND IS AND OS COMPLETE. NO NEEDS AT THIS TIME. CALL LIGHT WITHIN REACH.
--- NOTE | 2022-02-04 14:52 | NUR ---
PATIENT'S AFTERNOON ASSESSMENT COMPLETE. PATIENT HAS BEEN RESTING FAIRLY COMFORTABLY THIS AFTERNOON AND HAS DENIED ANY PAIN OR NAUSEA FRO ME AT THIS TIME. CALL LIGHT IN REACH AND BED ALARM IS ON. PATIENT HAS NO OTHER NURSE CARE NEEDS AT THIS TIME.
--- NOTE | 2022-02-04 16:16 | NUR ---
PATIENT CONTINUES TO REST QUIETLY. EVENING BOWEL MEDS HAVE BEEN HELD FOR THE EVENING SINCE PATIENT HAS HAD SO MANY LOOSE STOOLS TODAY. CALL LIGHT IS IN REACH AND BED ALARM IS ON.
--- NOTE | 2022-02-04 17:08 | NUR ---
in to check pt. pt declined that she needed to use restroom. brief check, and heavily soiled. i bell spinner to change and clean pt w assistance from pt via rolling from side to side. other bell spinner in room to assist repos pt up in bed. food tray put in front of pt. no further needs. call light within reach.
--- NOTE | 2022-02-04 19:59 | NUR ---
REPORT RECEIVED FROM DAY SHIFT RN. PT LYING ON RIGHT SIDE RESTING WITH EYES CLOSED. AWAKENS EASILY. DENIES NEEDS. WHITE BOARD UPDATED. CALL LIGHT REACH.
--- NOTE | 2022-02-04 20:08 | NUR ---
REPORT RECEIVED FROM DAY SHIFT RN. PT LYING IN BED WITH EYES CLOSED. RESPIRATIONS EVEN. WHITE BOARD UPDATED. CALL LIGHT IN REACH. BED ALARM FOR SAFETY.
--- NOTE | 2022-02-04 20:30 | NUR ---
CALL LIGHT ANSWERED. 2PA TO BSC TO VOID. STAFF ASSIST WITH PRISCA CARE. BACK TO BED, MARLEN WELL. PT REPORTS BACK PAIN 9/10 AND NAUSEA. SCHEDULED PAIN MEDS AND PRN FOR N/V ADMIN PER EMAR. EVENING ASSESSMENT COMPLETE. WARM BLANKET PROVIDED. NO FURTHER NEEDS AT THIS TIME. BED ALARM FOR SAFETY. CALL LIGHT IN REACH.
--- NOTE | 2022-02-04 22:14 | NUR ---
PT REPORTS FEELING SOB. PT COUGHING BUT UNABLE TO CLEAR SECRETIONS. SpO2 96% ON RA. HR 80'S. RR 20. PRN NEB TX ADMIN PER EMAR. PT STATES "THIS BACK PAIN IS KILLING ME." PRN FOR PAIN ADMIN. ASSISTED TO REPOSITION IN BED. NO FURTHER NEEDS.
--- NOTE | 2022-02-04 23:40 | NUR ---
PATIENT CALLED TO USE THE BATHROOM. 2 PA TO BEDSIDE COMMODE. PATIENT'S PULL UPS AND PAD WERE WET AND STILL ABLE TO VOID 250ML IN THE BEDSIDE COMMODE. PATIENT IS BACK IN BED. WARM BLANKET PROVIDED. BED ALARM ON FOR SAFETY. CALL LIGHT WITHIN REACH. FRESH ICE WATER PROVIDED.
--- NOTE | 2022-02-05 01:00 | NUR ---
PT CALLING "HELP" IN TO ASSIST PT TO SIT UP IN BED FOR SNACK. NO FURTHER NEEDS AT THIS TIME.
--- NOTE | 2022-02-05 02:45 | NUR ---
PT AWAKE IN BED. REPORTS BACK/"TOP OF TUMMY" PAIN 10/26. PRN FOR PAIN ADMIN PER EMAR. ASSISTED PT TO REPOSITION FOR COMFORT. NO FURTHER NEEDS.
--- NOTE | 2022-02-05 04:53 | NUR ---
PT RESTING IN BED WITH EYES CLOSED. RESPIRATIONS EVEN. CALL LIGHT IN REACH. BED ALARM FOR SAFETY.
--- NOTE | 2022-02-05 07:10 | NUR ---
PT LAYING IN BED. PT ASSISTED TO CHAIR 2 PA STAND PIVOT. PT PROVIDED WARM BLANKET AND COFFEE. LEGS UP IN CHAIR. BED MADE. NO FURTHER NEEDS. CALL LIGHT WITHIN REACH.
--- NOTE | 2022-02-05 07:18 | NUR ---
ASSUMING CARE OF PT. RECEIVED REPORT FROM BETO GARZA. PT RESTING IN BED, EYES CLOSED, RESPIRATIONS EVEN AND UNLABORED. CALL LIGHT WITHIN REACH.
--- NOTE | 2022-02-05 08:25 | NUR ---
THIS RN IN ROOM FOR MORNING MEDICATION AND ASSESSMENT. PT SITTING IN CHAIR IN ROOM, CALL LIGHT WITHIN REACH WELL PT BELONGINGS. PT COMPLAINT OF NAUSEA. MEDICATION PROVIDED PER PROTOCOL. PT CURRENTLY RECEIVING BREATHING TREATMENT AND DENIES FURTHER NEEDS AT THIS TIME.
--- NOTE | 2022-02-05 08:48 | NUR ---
DISCUSSED THE DISCHAGE PLAN. DANIEL WILL HAVE AN INTERVIEW [facility] TODAY TO DISCUSS PLACEMENT. DANIEL ALSO HAS A DOG WHO SHE IS REQUESTING TO BE ALLOWED TO TAKE HER DOG TO [facility] ALSO.
--- NOTE | 2022-02-05 09:40 | NUR ---
PATIENT CALLED OUT HAVING DRY HEAVES AND COMPAZINE HAD ALREADY BEEN GIVEN. 12.5MG PROMETHAZINE IN 20MLS NS GIVEN OVER 15 MINUTES PER PROTOCOL FOR NAUSEA. NO REDNESS NOTED AT THE IV SITE AND IV FLUSHED WELL. PATIENT SAYS HER NAUSEA IS ALREADY STARTING TO DISSIPATE ALREADY AND HEAVES HAVE STOPPED. PATIENT HAS NO OTHER CARE NEEDS AT THIS TIME. CALL LIGHT IN REACH.
--- NOTE | 2022-02-05 10:29 | NUR ---
PT SITTING IN CHAIR IN ROOM. RESPIRATIONS EVEN AND UNLABORED. CALL LIGHT AND PT BELONGINGS AT BEDSIDE. FAMILY IN ROOM VISITING. PT DENIES NEEDS AT THIS TIME.
--- NOTE | 2022-02-05 11:20 | NUR ---
HAND TAPPER IN ROOM TO PLACE AN ULTRASOUND GUIDED IV PT HAS LIMITED ACCESS AND COMPLAINT OF PAIN IN LEFT WRIST WHERE IV'S ARE LOCATED WELL SWELLING PRESENT.
--- NOTE | 2022-02-05 11:24 | NUR ---
PT RESTING IN BED, CALL LIGHT WITHIN REACH, BEDRAILS UP FOR SAFETY. PT ON 10L CPAP AT 50% WITH O2 99%. PT STATES SHE FEELS LESS SHORT OF BREATH WITH CPAP IN PLACE. PT DENIES FURTHER NEEDS AT THIS TIME. PT HAS PILLOW UNDER LEFT SIDE TO PREVENT PRESSURE ON COCCYX.
--- NOTE | 2022-02-05 11:48 | NUR ---
PT IV'S IN LEFT HAND REMOVED, 18G PLACED IN RIGHT ARM WITH ULTRASOUND BY ANDRES GARZA. PT TOLERATED WELL, STATED SHE IS HAPPY TO HAVE THE OTHERS REMOVED. PT WANTING TO REST. CALL LIGHT WITHIN REACH, BEDRAILS UP FOR SAFETY. NO NEEDS AT THIS TIME.
--- NOTE | 2022-02-05 12:20 | NUR ---
PT DONE W LUNCH TRAY. PT CO PAIN. RN NOTIFIED. PT BRIEF CHECKED AND OK. PT REQ TO REST. NO FURTHER NEEDS. CALL LIGHT WITHIN REACH.
--- NOTE | 2022-02-05 13:54 | NUR ---
PT SITTING UP IN BED, CALL LIGHT WITHIN REACH, BEDRAILS UP FOR SAFETY. PT COMPLAINT OF NAUSEA, INFORMED SHE CAN HAVE NAUSEA MEDICATION IN 15MINUTES SHE HAD IT ALMOST SIX HOURS PRIOR. PT DENIES PAIN.
--- NOTE | 2022-02-05 14:18 | NUR ---
PT ALERT, ORIENTED AND SITTING IN CHAIR. HAND BUFFER IN CARING FOR P. GAVE SUPPORT AND ENCOURAGEMENT. PT SAID SHE SLEPT OK. BLESSING GIVEN AND WILL FOLLOW
--- NOTE | 2022-02-05 14:22 | NUR ---
IN PT ROOM, ABX STARTED VIA IV INFUSION. PT FRIEND AT BEDSIDE. PT IS VISITING, SMILING, STATING HER DOG IS BEING BROUGHT IN TO SEE HER. PT DENIES PAIN AT THIS TIME. CALL LIGHT WITHIN REACH AND BEDRAILS UP FOR SAFETY.
--- NOTE | 2022-02-05 15:27 | NUR ---
PATIENT VISITING WITH HER DOG. PATIENT INFORMED BY INVENTORY AUDIT CLERK THAT SHE WILL BE MOVING TO [facility] ON Thursday. ALSO HOSPICE WILL DO A PATIENT INTAKE ON THAT DAY. A MESSAGE WAS LEFT FOR CARSON THE INVENTORY AUDIT CLERK FOR [facility] APPROVAL FOR PATIENT TO GO [facility].
--- NOTE | 2022-02-05 15:30 | NUR ---
PT RESTING IN BED, CALL LIGHT WITHIN REACH, BEDRAILS UP FOR SAFETY. NO COMPLAINTS AT THIS TIME.
--- NOTE | 2022-02-05 16:43 | NUR ---
IN TO TO GIVE EVENING MEDICATION. PT RESTING IN BED. RESPIRATIONS EVEN AND UNLABORED. PT DENIES PAIN. PT STATES SHE HOPES SHE IS ABLE TO GO TO [facility] SHE CAN TAKE HER DOG. NO CHANGES FROM EALIER ASSESSMENT.
--- NOTE | 2022-02-05 16:55 | NUR ---
PT ADMITTED FOR HYPERCALCEMIA AND PNEUMONIA. PT HAS BEEN ON ROOM AIR, BUT NOTEABLE CRACKLES IN LUNGS. PT HAS BEEN COMPLAINING OF EPIGASTRIC AND MID BACK PAIN WHICH SHE HAS BEEN GIVEN PAIN MEDICATION AND A GI COCKTAIL WHICH HAS RELIEVED SYMPTOMS. INDIVIDUALS FROM [facility] ASSESSED PT TODAY FOR POTENTIAL PLACEMENT. PT STATES SHE WOULD BE HAPPY TO GO THERE. PT HAS BEEN UP IN CHAIR MOST OF THE DAY WITH FAMILY AND FRIENDS VISITING. PT AMBULATING TO BATHROOM WITH 1PA/WALKER. PT DENIES PAIN OR OTHER NEEDS AT THIS TIME. PLAN OF CARE IS TO CONTINUE MEDICATION AND IV ABX AND WAIT TO HEAR ABOUT PLACEMENT. PT IS WORKING WITH PT/OT TO GAIN STRENGTH.
--- NOTE | 2022-02-05 17:16 | NUR ---
Referral, biopsy, H&P faxed to Hospice at .
--- NOTE | 2022-02-05 17:18 | NUR ---
Called and updated son, mom would like hospice and to not seek treatment. Hospice will admit pt on Thursday. Pt will move to [facility] on Thursday and Hospice will see her there. Son will visit on Thursday and then will be at [facility] to assist pt with paperwork and to assist with hospice questions.
--- NOTE | 2022-02-05 17:54 | NUR ---
PT RESTING IN BED. PT ATE 10% OF DINNER, STATING THE FOOD IS "NOT GOOD". MEDICATION GIVEN AND DIFFERENT FOOD OPTIONS OFFERED. DIETARY CALLED FOR FOOD TO BE BROUGHT UP. PT DENIES PAIN AT THIS TIME. CALL LIGHT WITHIN REACH AND BEDRAIL UP FOR SAFETY.
--- NOTE | 2022-02-05 18:12 | NUR ---
PATIENT CALLED HAVING 8/ "TUMMY" PAIN AND WAS MEDICATION WITH 5MG PO OXYCODONE. PATIENT HAD NO OTHER CARE NEEDS AT THIS TIME. CALL LIGHT IN REACH.
--- NOTE | 2022-02-05 19:32 | NUR ---
RECEIVED REPORT FROM OFFGOING SHIFT, HOURLY ROUNDING INITIATED.
--- NOTE | 2022-02-06 04:09 | NUR ---
IN PT ROOM FOR ROUNDING, MEDICATION ADMINISTRATION
--- NOTE | 2022-02-06 04:10 | NUR ---
IN PT ROOM FOR ROUNDING, PT RESTING ON BACK, NO COMPLAINT OF PAIN OR DISCOMFORT.
--- NOTE | 2022-02-06 04:12 | NUR ---
IN ROOM FOR ROUNDING. PT RESTING ON SIDE, NO COMPLAINT OF PAIN OR DISCOMFORT, BREATHING EVEN AND UNLABORED. CALL LIGHT IN REACH.
--- NOTE | 2022-02-06 04:14 | NUR ---
IN PT ROOM FOR ROUNDING, PT RESTING ON SIDE, NO COMPLAINT OF PAIN OR NAUSEA. PT CALL LIGHT IN REACH, BREATHING EVEN AND UNLABORED.
--- NOTE | 2022-02-06 07:08 | NUR ---
Gave fresh ice water and saltine crackers.
--- NOTE | 2022-02-06 09:05 | NUR ---
Called and updated [facility]. Pt will admit to hospice on Thursday at their facility. Hospice will supply bed and DME as pt lives in a camp trailer and does not have any furniture to be moved into their facility. Rubi states they will need a Bed, overbed table, and a shower chair. I will call hsopice and cnfirm admission on Thursday with time.
--- NOTE | 2022-02-06 14:12 | NUR ---
Called and confirmed admission time for Radha to Hospice on will be after 10. DME will arrive from Hospice early in the AM. Will dc pt to [facility] at 10:00 on . Received move in orders from Rubi and Dr. Carmona signed and orders faxed to Rubi.
--- NOTE | 2022-02-06 14:27 | NUR ---
PT SITTING UP IN BED, SEAL SKINNER TIA TAKING VS. GAVE ENCOURAGEMENT WILL CHECK BACK
--- NOTE | 2022-02-06 19:36 | NUR ---
Received report from offgoing shift, hourly rounding initiated,
--- NOTE | 2022-02-06 22:20 | NUR ---
IN ROOM MULTIPULE TIMES D/T BED ALARM, PT C/O HEARTBURN, UP TO THE TOILET FOR MULTIPULE LOOSE Nilson, RN AWARE
--- NOTE | 2022-02-07 | NUR ---
IN TO ASSIST PT WITH GETTING CLEANED UP, PT HAD EPISODE OF INCONT BM WHILE RETCHING, COOL RAG PROVIDED, SIP OF GERTRUDIS PROVIDED, RN IN TO ASSIST WITH MEDICATION NEEDS
--- NOTE | 2022-02-07 01:00 | NUR ---
in pt room for rounding. pt resting on side, no indication of pain or discomfort. Call light in reach
--- NOTE | 2022-02-07 03:30 | NUR ---
In pt room for rounding. Pt resting on side, states that she feels better after PRN medications for heartburn and nausea. Pt call light in reach, no complaint of pain or discomfort.
--- NOTE | 2022-02-07 05:30 | NUR ---
In pt room for rounding. Pt resting, breathing even and unlabored. Pt call light in reach, no complaint of pain or discomfort
--- NOTE | 2022-02-07 07:45 | NUR ---
Pt refused all care this am. Pt stated, "get out and leave me alone". call light within reach. bed alarm on.
--- NOTE | 2022-02-07 09:00 | NUR ---
REPORT RECEIVED FROM NIGHT RN AND PT. CARE RESUMED. PT. IS DROWSY BUT AWAKENS EASILY TO VOICE. ORIENTED TO SELF AND PLACE. ASSESSMENT COMPLETED. C/O BACKPAIN. ADMIN SCHEDULED PAIN MED. LEFT RESTING WITH CALL LIGHT IN REACH AND ALARM ON.
--- NOTE | 2022-02-07 09:48 | NUR ---
PATIENT LYING IN BED AFTER MEAL. VITALS AND I/O'S COMPLETED. PT HAS NO OTHER NEEDS AT THIS TIME. CALL LIGHT WITHIN REACH.
--- NOTE | 2022-02-07 10:47 | NUR ---
ROUNDING ON PT. SHE IS RESTING WITH EYES CLOSED. RESPIRATIONS ARE EVEN AND UPLABORED.
--- NOTE | 2022-02-07 11:11 | NUR ---
PT LAYING ON L SIDE IN BED. RESPONDED TO MY VOICE. HAS HERNANDES SITTING ON TABLE WHERE SHE CAN SEE THEM. DOESN;T KNOW WHERE THEY CAME FROM, BUT SEEMS TO BE ENJOYING THEM. GAVE ENCOURAGEMENT, OFFERED A PRAYER, WILL FOLLOW
--- NOTE | 2022-02-07 14:26 | NUR ---
PATIENT IN BED AFTER MEAL. VITALS AND I/O'S COMPLETED. PT HAS NO OTHER NEEDS AT THIS TIME. CALL LIGHT WITHIN REACH.
--- NOTE | 2022-02-07 16:37 | NUR ---
Plan remains for Radha to admit to [facility] on Thursday.
--- NOTE | 2022-02-07 17:22 | NUR ---
PT. FOUND CRYING IN CHAIR EATING DINNER. SHE STATES SHE IS CONCERNED THAT HER FAMILY WILL TAKE HER DOG AFTER DC. LISTENED TO PT. CONCERNS AND REASSURED. SHE DENIES PAIN OR NAUSEA. WILL CONTINUE TO MONITOR.
--- NOTE | 2022-02-07 19:41 | NUR ---
RECEIVED REPORT FROM OFFGOING SHIFT, HOURLY ROUNDING INITIATED
--- NOTE | 2022-02-07 20:30 | NUR ---
CALL LIGHT ANSWERED, CRACKERS PROVIDED PER pt REQUEST. NO ADDITIONAL NEEDS, CALL LIGHT IN REACH. BED ALARM REMAINS ON FOR SAFETY.
--- NOTE | 2022-02-07 22:30 | NUR ---
IN PT ROOM FOR ROUNDING. PT RESTING ON SIDE, NO COMPLAINT OF PAIN OR DISCOMFORT. PT BREATHING EVEN AND UNLABORED. CALL LIGHT IN REACH.
--- NOTE | 2022-02-07 23:42 | NUR ---
IN PT ROOM FOR ROUNDING. PT RESTING ON SIDE, BREATHING EVEN AND UNLABORED. PT HAS CALL LIGHT IN REACH, NO INDICATION OF PAIN OR DISCOMFORT.
--- NOTE | 2022-02-08 00:56 | NUR ---
IN PT ROOM FOR ROUNDING. PT BREATHING EVEN AND UNLABORED, NO SIGNS OF PAIN OR DISCOMFORT. PT CALL LIGHT IN REACH
--- NOTE | 2022-02-08 04:28 | NUR ---
IN PT ROOM FOR ROUNDING. PT RESTING WITH UNLABORED BREATHING, NO INDICATIONS OF PAIN OR DISCOMFORT. CALL LIGHT IN REACH.
--- NOTE | 2022-02-08 08:13 | NUR ---
PATIENT UP IN CHAIR FOR BREAKFAST. AM CARE COMPLETED. ICE WATER, COFFEE AND A HOT PACK WAS GIVEN. CHAIR ALARM SET. CALL LIGHT WITHIN REACH.
--- NOTE | 2022-02-08 09:30 | NUR ---
REPORT RECEIVED FROM NIGHT RN AND PT CARE RESUMED. PT. DROWSY BUT AWAKENS EASILY TO VOICE. ORIENTED TO SELF AND PLACE. ASSESSMENT COMPLETED AND MEDS GIVEN. LEFT RESTING WITH CALL LIGHT IN REACH.
--- NOTE | 2022-02-08 09:48 | NUR ---
PATIENT IN BED AFTER MEAL. VITALS AND I/O'S COMPLETED. BED ALARM SET. CALL LIGHT WITHIN REACH.
--- NOTE | 2022-02-08 11:12 | NUR ---
BED ALARM SOUNDING. PT UP AND OUT OF BED AND HALF WAY TO THE RESTROOM, IV NEARLY PULLED OUT. IV SECURED. WALKER PROVIDED AND PT ASSISTED TO RESTROOM. PT RESPORTS "I REALLY DON'T FEEL GOOD. i"M GOING TO THROW UP." PT REPORTS CHEST "PRESSURE." PTS PRIMARY RN NOTIFIED. PT ASSISTED BACK TO BED. ORDERS FROM DR. VELIZ FOR GI COCKTAIL. ORDRES ENTERED AND REPEAT BACK PEFORMED. DR. VELIZ AND LAM RN AT BEDSIDE WITH PT.
--- NOTE | 2022-02-08 11:24 | NUR ---
PT. IN THE BATHROOM WITH KAYLA JOSEPH PRESENT. SHE COMPLAINS OF EPIGASTRIC PAIN AND BACK PAIN. G.I. COCKTAIL ORDERED. IN THE ROOM. WILL CONTINUE TO MONITOR.
--- NOTE | 2022-02-08 14:06 | NUR ---
PATIENT IN BED AFTER MEAL. VITALS AND I/O'S COMPLETED. BED ALARM SET. CALL LIGHT WITHIN REACH.
--- NOTE | 2022-02-08 14:30 | NUR ---
ROUNDING ON PT. SHE IS TEARFUL. WHEN ASKED WHAT IS WRONG PT. STATES "ITS NOT EASY KNOWING YOURE DYING. THESE NURSES COMING IN HERE THINKING THEYRE CUTE AND TELLING ME WHAT TO DO LIKE THEIR IN COMMAND". DISCUSSED WITH PATIENT SHE CAN REFUSE INTERVENTIONS AND MAKE HEALTH DECISIONS. THERAPEUTIC COMMUNICATION USED. SHORTLY AFTER LEAVING ROOM, FRIEND CALLED AND STATES PT. CALLED AND TOLD HER THAT NURSES TOLD PT. "WHY DON'T YOU HURRY UP AND ?". FRIEND REASSURED THIS IS NOT THE CASE. THIS NURSE BACK IN ROOM TO SPEAK WITH PT. PT STATES SHE WANTS TO BE LEFT ALONE. CALL LIGHT IN REACH.
--- NOTE | 2022-02-08 16:55 | NUR ---
PT. RESTING WITH EYES CLOSED. RESPIRATIONS EVEN AND UNLABORED.
--- NOTE | 2022-02-08 17:40 | NUR ---
PATIENT IN BED AFTER MEAL. VITALS AND I/O'S COMPLETED. BED ALARM SET. HOT PACK GIVEN FOR PAIN IN BACK. CALL LIGHT WITHIN REACH.
--- NOTE | 2022-02-08 21:18 | NUR ---
FULL BODY ASSESSMENT DONE. PATIENT REQUESTING MUSCLE RELAXER, ADMINISTER PER APR. PATIENT APPEARS AAOX3. PROVIDED FRESH ICE WATER. NO OTHER NEEDS.
--- NOTE | 2022-02-08 22:00 | NUR ---
PATIENT REPORTING DYSPNEA AND STERNAL CHEST PAIN, APPEARS TEARY EYED. ELEVATED HOB, VS WNL. CALL TO DR. FLYNN, NEW ORDER FOR EKG STAT, AND PROVIDER VERBALIZED WOULD COME TO THE FLOOR TO FURTHER ASSESS.
--- NOTE | 2022-02-08 22:23 | NUR ---
EKG UNCHANGED FROM PREVIOUS ONE DONE, DR. FLYNN AT BEDSIDE. ADMINISTERED PRN PAIN MEDICATION. PATIENT APPEARS TO BE SETTLING, LAUGHING WHILE CONVERSING, APPEARS OVERALL MUCH CALMER. DR. FLYNN VERBALIZED STERNUM PAIN RELATED TO EMOTIONAL STRESS WITH THE HOLIDAYS AND GOING HOME COMFORT CARE.
--- NOTE | 2022-02-08 23:26 | NUR ---
PATIENT RESTING EASY, LIGHTS DIM. APPEARS CALM. RATES PAIN 3/10 ON PAIN SCALE, CHEST PAIN HAS RESOLVED.
--- NOTE | 2022-02-09 02:46 | NUR ---
call light answered, pt reports 7-8 generalized pain, warm pack wrapped in pillow case provided along with prn tylenol. lotion also provided to back for compliant of dry skin. bed alarm on, call light in reach.
--- NOTE | 2022-02-09 04:20 | NUR ---
in to assist pt to the toilet, sba fww, pt back to bed, pt feels unwell, unable to speify when asked, vs taken, wnl, pt says she is hungry, able to offer jello and reassure breakfast is in a few hours, pt is glad for the jello, fresh water provided, tucked pt into bed, pt immediately states she in nasiated from the jello, nothing produced, pt provided cool rag and laid back in bed, rn informed of all aboved note
--- NOTE | 2022-02-09 05:37 | NUR ---
PATIENT APPEARS TO BE RESTING WITH EYES CLOSED. BREATHING EVEN AND REGULAR WITH RR 16. CALL LIGHT WITHIN REACH. ASSESSMENT DONE.
--- NOTE | 2022-02-09 07:55 | NUR ---
PT ALERT AND INTERACTIVE AT TIME OF SHIFT EXCHANGE. C/O FEELING SOB R/T NOTIFIED NEB TREATMENT ADMINISTERED.
--- NOTE | 2022-02-09 10:10 | NUR ---
PT TOLERATES ABOUT 50% OF MORNING MEAL RESTING IN BED. CONTINUES RESTING IN BED AT THIS TIME AWAKENS TO VOICE. CALL LIGHT AND NEEDED ITEMS IN REACH FRESH H20 TO BEDSIDE
--- NOTE | 2022-02-09 11:34 | NUR ---
PT SITTING UP ON EDGE OF BED USING HER PHONE. SAYS SHE FEELS "CRAPPY" BUT DENIES SPECIFIC NEED. OFFERED SHOWER, TO THE CHAIR, PAIN MEDS...
--- NOTE | 2022-02-09 14:12 | NUR ---
FAMILY PRESENT X3 PT VISITING ACTIVELY
--- NOTE | 2022-02-09 17:00 | NUR ---
PT HAS SEVERAL VISITORS TODAY THEN NAPS FOR SOMETIME. PT CONFUSED UPON WAKING THOUGHT SHE HAD HAD A BIG MEAL, DOES NOT REMEMBER VISITORS. C/O A SEVERE HEADACHE TYLENOL GIVEN AND A WARM BLANKET. PT ENCOURAGED TO REST FOR A TIME. HAS COLA AT BEDSIDE PROVIDED BY FAMILY.
--- NOTE | 2022-02-09 19:45 | NUR ---
PATIENT RESTING, SITTING UP IN BED. APPEARS COMFORTABLE, AND CALM. ORIENTED TO PERSON, PLACE AND TIME. FULL BODY ASSESSMENT DONE. PROVIDED HS CARE. PATIENT REPORTS MILD PAIN IN ABDOMEN, PLAN TO ADMINISTER MEDICATION PER MAR. DISCUSSED POC FOR THE NIGHT. PATIENT APPEARS CONTENT, ANSWERED QUESTIONS AND CONCERNS.
--- NOTE | 2022-02-09 21:19 | NUR ---
pt CALLING OUT IN PAIN, EMOTIONAL. RATES PAIN 9/10 IN BACK. WARM BLANKET, WARM PACK PROVIDED. SCHEDULED MEDICATIONS ADMINISTERED FOR PAIN. CALL LIGHT IN REACH. BED ALARM ON. VSS.
--- NOTE | 2022-02-09 22:30 | NUR ---
CALL LIGHT ANSWERED, PT UP TO BEDSIDE COMMODE TO VOID; URINE DARK IN COLOR & TURBID. PT BACK TO BED, WARM BLANKET PROVIDED, ICE WATER REFILLED. CALL LIGHT WITHIN REACH.
--- NOTE | 2022-02-10 00:10 | EKG ---
[facility] [address] [place], [place] [address] Signed Normal sinus rhythm Normal ECG No previous ECGs available Confirmed by MAK FLYNN MD ([id number]) on 02/10/2022 12:10:44 AM Electronically Signed By: MAK FLYNN MD 02/10/22 0010 PATIENT NAME: DANIEL EVANS Electrocardiogram DATE OF : 54 PHYSICIAN: MAK FLYNN MD REPORT #: [id number] REPORT IS CONFIDENTIAL AND NOT TO BE RELEASED WITHOUT AUTHORIZATION
--- NOTE | 2022-02-10 02:40 | NUR ---
BED ALARMING. THIS TRAINING MANAGER AND RN JOANNA HELPED PATIENT UP TO BEDSIDE COMMODE. PATIENT ALREADY WET THE BED. PATIENT DID NOT URINATE AND NO BM. BED LINEN CHANGED. GOWN CHANGED. PATIENT IS BACK IN BED. WARM BLANKET PROVIDED. BED ALARM ON FOR SAFETY.
--- NOTE | 2022-02-10 05:00 | NUR ---
ASSESSMENT DONE, NO ACUTE CHANGES. PATIENT RESTING EASY, BREATHING EVEN AND REGULAR. FACE PAIN SCALE 2/10. APPEARS TO HAVE NO OTHER NEEDS AT THIS TIME.
--- NOTE | 2022-02-10 07:37 | NUR ---
PT SLEEPING SOUNDLY AT TIME OF SHIFT REPORT, LEFT UNDISTURBED. NEEDED ITEMS IN REACH BED ALARM IS SET.
--- NOTE | 2022-02-10 08:41 | NUR ---
VAN TRANSPORT SCHEDULED FOR 02/11/22 @ 10 AM TO [facility].
--- NOTE | 2022-02-10 11:44 | NUR ---
PT RESTING EYES CLOSED AT THIS TIME. BED ALARM IS SET SHE APPEARS COMFORTABLE. SELF FED MOST OF MORNING MEAL, WELL TOLERATED, HAS BEEN MOSTLY DROWSY EVER SINCE.
--- NOTE | 2022-02-10 12:41 | NUR ---
REPEAT COVID SWAB ORDER FOR DISCHARGE PER REQUEST OF AIMEE HURLEY.
--- NOTE | 2022-02-10 15:29 | NUR ---
PT HAS BEEN TO THE TOILET SBA WITH FWW SEVERAL TIMES THIS SHIFT. REMAINS MOSTLY SLEEPY BUT EASILY AROUSABLE BY VOICE. NO VISITORS THIS SHIFT.
--- NOTE | 2022-02-10 18:46 | NUR ---
PT USES CALL LIGHT APPROPRIATELY FOR UP TO THE TOILET. SBA WITH FWW RETURNS TO BED. PT STATES SHE IS LEAVING TOMORROW BUT DOES NOT KNOW TO WHERE. AGREES HER FAMILY WILL BE PRESENT AND ARE SUPPORTIVE. PT ATE MOST OF EVENING MEAL STATES SHE WANTS TO SLEEP NOW.
--- NOTE | 2022-02-10 20:57 | NUR ---
FULL BODY ASSESMENT DONE, PATIENT APPEARS TO BE RESTING WITH EYES CLOSED. OPENS EYES TO VERBAL STIMULI. PROVIDED WARM BLANKET. LUNG SOUNDS DIMINISHED AND COURSE THROUGHOUT ALL BASES. COVID PERCUATIONS SET UP OUTSIDE OF ROOM, TESTED POSITIVE FOR COVID TODAY.
--- NOTE | 2022-02-11 00:17 | NUR ---
PATIENT UP TO BATHROOM, APPEARS DISORIENTED TO ENVIRONMENT. PATIENT THINKS ITS MORNING. REORIENTED TO ROOM, PATIENT REQUESTING FOOD. PROVIDED DINNER ITEMS, AND ASSISTED TO BATHROOM. PATIENT STEADY ON FEET WITH FWW. VOIDING WELL. REPORTS ACHE IN STOMACH, STATES " MAYBE IT'S HUNGER PAIN" PATIENT ALSO ASKING QUESTIONS ABOUT END OF LIFE CARE WITH CANCER, PROVIDED EMOTIONAL SUPPORT AND REASSURANCE WITHIN MY SCOPE OF PRACTICE.
--- NOTE | 2022-02-11 01:45 | NUR ---
PATIENT APPEARS TO BE RESTING WITH EYES CLOSED. HOURLY ROUNDING.
--- NOTE | 2022-02-11 03:16 | NUR ---
PATIENT COMPLAINTS OF PAIN 6/10 ON PAIN SCALE, ADMINISTERED PRN PAIN MEDICATION PER MAR. PATIENT UP TO BATHROOM VOIDED. BACK TO BED SITTING AT EDGE EATING SNACKS. PATIENT APPEARS TO BE CONFUSED WITH EVENTS THAT HAPPEN THROUGHOUT THE DAY. PROVIDE REORIENTATION NEEDED. LUNG SOUNDS DIMINISHED IN BASES AND CLEAR IN UPPER LOBES. VS WNL. ASSESSMENT DONE. NO OTHER NEEDS AT THIS TIME.
--- NOTE | 2022-02-11 05:22 | NUR ---
PATIENT RESTING WITH EYES CLOSED. FACE PAIN SCALE SCORE 1/10. APPEARS CALM. BED ALARM ON.
--- NOTE | 2022-02-11 07:30 | NUR ---
RECEIVED REPORT FROM SAMMY GARZA. ASSUMING CARE OF PT. PT RESTING IN BED WITH EYES CLOSED, RESPIRATIONS EVEN AND UNLABORED.
--- NOTE | 2022-02-11 07:52 | NUR ---
PT CALLED, REQUESTING TO USE BATHROOM. PT 1PA/WALKER TO BATHROOM. PT RESPIRATIONS EVEN AND UNLABORED. COMPLAINT OF 08/25. MEDICATION GIVEN. DENIES FURTHER NEEDS.
--- NOTE | 2022-02-11 07:54 | NUR ---
Received a return call for KAYLA Carvalho CM. from [facility] was returning her call. Updated, Radha, is now + for Covid, but is asymptomatic. She will check to see what the requirements are and call Maia.
--- NOTE | 2022-02-11 08:10 | NUR ---
[facility] called and upated that patient is positive for Covid. Patient will have to wait 10 days before she is able to go to [facility] for placement.
--- NOTE | 2022-02-11 09:50 | NUR ---
PT FRIEND IN TO SEE PT. PT FRIEND INFORMED OF COVID STATUS AND NEED TO GOWN UP PER PROTOCOL. PT FRIEND REQUESTED TO GIVE PT SODA AND "TELL HER HI FROM [facility]". SODA GIVEN TO PT AND MESSAGE RELAYED. PT RESTING IN BED WITH CALL LIGHT WITHIN REACH.
--- NOTE | 2022-02-11 10:25 | NUR ---
[facility] WAS CALLED WITH A REFERRAL FOR PLACEMENT FOR DANIEL EVANS. THERE ARE NO BEDS AVAILABLE FOR PLACEMENT DUE TO A FLOOD IN THEIR BUILDING.
--- NOTE | 2022-02-11 11:15 | NUR ---
PT SITTING IN CHAIR PLAYING ON PHONE. CALL LIGHT WITHIN REACH AND PT BELONGINGS ON BEDSIDE TABLE. PT DENIES NEEDS AT THIS TIME.
--- NOTE | 2022-02-11 12:46 | NUR ---
pt resting in bed, call light within reach, bedrails up for safety. family brought in soda and visited for twenty minutes. pt smiling and talking about family.
--- NOTE | 2022-02-11 13:30 | NUR ---
PT RESTING IN BED, CALL LIGHT WITHIN REACH, BEDRAILS UP FOR SAFETY. RESPIRATIONS EVEN AND UNLABORED.
--- NOTE | 2022-02-11 13:34 | NUR ---
PT RESTING IN BED, CALL LIGHT WITHIN REACH, BEDRAILS UP FOR SAFETY. NO COMPLAINT AT THIS TIME. RESPIRATIONS EVEN AND UNLABORED.
--- NOTE | 2022-02-11 15:30 | NUR ---
PT ASSISTED TO AND FROM BATHROOM. CALL LIGHT WITHIN REACH. PT DENIES NEEDS AT THIS TIME.
--- NOTE | 2022-02-11 17:23 | NUR ---
PT GIVEN DINNER. PT ASKED TO HAVE MEAL IN BED. TRAY GIVEN. PT DENIES PAIN OR NAUSEA. CALL LIGHT WITHIN REACH, BEDRAILS UP FOR SAFETY.
--- NOTE | 2022-02-11 17:24 | NUR ---
PT ON COVID PRECAUTIONS DUE TO POSITIVE TEST COMPLETED FOR PLACEMENT TO [facility]. PT AMBULATING AROUND ROOM AND UP TO CHAIR WITH 1PA/WALKER. PT ON HOLD FOR TEN DAYS FOR COVID PRECAUTIONS PRIOR TO PLACEMENT. PT HAS BEEN SMILING TODAY, WATCHING TV. NO EPISODES OF ANXIETY. DENIES PAIN OR NAUSEA AT THIS TIME. 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
--- NOTE | 2022-02-11 18:03 | NUR ---
PT TOP BLANKET AND GOWN CHANGED AFTER DINNER. PT STATES SHE CANNOT REMEMBER WHAT SHE HAD FOR DINNER. PT GIVEN EVENING MEDICATION. PT SITTING IN BED WITH CALL LIGHT WITHIN REACH WELL PT BELONGINGS.
--- NOTE | 2022-02-11 19:20 | NUR ---
SHIFT REPORT RECEIVED FROM HUYENMSDOLLY JACKSON AT BEDSIDE. pt AWAKE AND RESTING IN BED, ON RA. RR EVEN AND UNLABORED, CALL LIGHT IN REACH AND BED ALARM ON FOR SAFETY. pt RECENTLY ON THE PHONE WITH HER DAUGHTER. NO NEEDS OR CONCERNS VERBALIZED.
--- NOTE | 2022-02-11 21:05 | NUR ---
ASSESSMENT COMPLETE, pt ANXIOUS AND RESTLESS AT TIMES. VSS, pt ON RA. RR EVEN AND UNLABORED. pt UP 1PA WITH FWW TO VOID VIA BSC AND BACK TO BED. BED ALARM RESUMED, NO S/SX OF SKIN BREAKDOWN NOTED TO COCCYX. EVENING MEDS PROVIDED, pt REPORTS 8/10 PAIN TO BACK. CRACKERS AND WARM BLANKET BOTH PROVIDED PER pt REQUEST. IV SITE WNL, FLUSHED PER PROTOCOL AND SALINE LOCKED. pt CAN BE FORGETFUL, REQUIRES THERAPEUTIC COMMUNICATION AND ENCOURAGEMENT. CALL LIGHT IN REACH, WILL CONTINUE TO MONITOR.
--- NOTE | 2022-02-11 23:54 | NUR ---
pt RESTING IN BED ON RA, RR EVEN AND UNLABORED. NO DISTRESS NOTED. BED ALARM ON AND CALL LIGHT IN REACH.
--- NOTE | 2022-02-12 00:15 | NUR ---
BED ALARMING. PATIENT UP TO BEDSIDE COMMODE. PATIENT IS BACK IN BED. PATIENT NOTED MOANING STATED "MY STOMACH, MY BACK". PATIENT DENIES FURTHER CARE NEEDS. BED ALARM ON FOR SAFETY.
--- NOTE | 2022-02-12 01:38 | NUR ---
pt RESTING IN BED, EYES CLOSED. ON RA, RR EVEN AND UNLABORED. NO DISTRESS NOTED. CALL LIGHT IN REACH AND BED ALARM ON.
--- NOTE | 2022-02-12 03:30 | NUR ---
rounded on pt, pt resting in bed with eyes closed, on ra. rr even and unlabored, no distress noted. bed alarm on and call light in reach. will continue to monitor.
--- NOTE | 2022-02-12 06:15 | NUR ---
in room for am assessment and vs. pt disoriented and forgetful to date/time. reoriented, up 1pa with fww to bsc to void and back to bed. bed alarm resumed and call light in reach. scattered courseness noted to lung sounds, pt demonstrated use of IS, reached [id number]. pt educated on use and benefits, pt verbalized understanding. fresh water provided, call light in reach.
--- NOTE | 2022-02-12 07:40 | NUR ---
REPORT RECIEVED. PT IN BED. AIRBORN PRECAUTIONS IN PLACE.
--- NOTE | 2022-02-12 10:03 | NUR ---
ASSESSMENT COMPLETED. PT IN BED. FINISHED 75% OF BREAKFAST. NO RESPITORY ISSUES. PT REPORTS TASTE IS STILL EFFECTED. LUNGS CLEAR. TRACE EDEMA IN BILAT LE. PAIN REPORTED 7/10 SCHECULED OXYCODONE ADMINISTERED. CALL LIGHT IN REACH. PT DENIES FURTHER NEEDS.
--- NOTE | 2022-02-12 12:20 | NUR ---
PT REPORTING PAIN 7/10 AFTER PAIN MEDICAITON ADMINSTRATION. PRN OXYCODONE ADMISNTERED AND PT ASSISTED UP TO CHAIR FOR LUNCH. PT WAS SBA WITH FWW AND WALKED WLL WITH NO CUEING. CALL LIGHT IN REACH.
--- NOTE | 2022-02-12 15:02 | NUR ---
PATIENT IS SITTING UP IN CHAIR. PATIENT AGREES WTH THE CURRENT PLAN OF CARE,PATIENT WILL GO TO [facility] WITH HOSPICE. PATIENT IS POSITVE FOR COVID AND HAS NO SYMTOMS.
--- NOTE | 2022-02-12 15:58 | NUR ---
FOCUSED ASSESSMENT COMPLETED. NO CHANGES
--- NOTE | 2022-02-12 17:00 | NUR ---
PT ASSISTED TO SIDE OF BED FOR DINNER. LACTULOSE ADMINSTERED.
--- NOTE | 2022-02-12 19:30 | NUR ---
IN PT ROOM FOR REPORT FROM OFFGOING SHIFT. PT RESTING ON BACK, HOURLY ROUNDING INITIATED.
--- NOTE | 2022-02-12 21:18 | NUR ---
IN PT ROOM FOR MEDICATION ADMINISTRATION, ROUNDING. PT RESTING ON BACK, NO COMPLAINT OF PAIN OR DISCOMFORT. PT CALL LIGHT IN REACH
--- NOTE | 2022-02-12 23:00 | NUR ---
IN PT ROOM FOR ROUNDING, PT LAYING SUPINE, NO COMPLAINT OF PAIN OR DISCOMFORT, NO COMPLAINT OF NAUSEA. PT CALL LIGHT IN REACH.
--- NOTE | 2022-02-13 00:56 | NUR ---
IN PT ROOM FOR ROUNDING. PT BREATHING EVEN AND UNLABORED, LAYING ON SIDE. PT HAS NO COMPLAINT OF PAIN OR DISCOMFORT, CALL LIGHT IN REACH.
--- NOTE | 2022-02-13 03:01 | NUR ---
IN PT ROOM FOR ROUNDING. PT RESTING ON SIDE, BREATHING EVEN AND UNLABORED, NO INDICATION OF PAIN OR DISCOMFORT. PT CALL LIGHT IN REACH.
--- NOTE | 2022-02-13 05:33 | NUR ---
IN PT ROOM FOR ROUNDING. PT RESTING ON SIDE, BREATHING EVEN AND UNLABORED, NO INDICATION OF PAIN OR DISCOMFORT. PT CALL LIGHT IN REACH
--- NOTE | 2022-02-13 07:31 | NUR ---
RECIEVED SHIFT REPORT. PT RESTING IN BED, EYES CLOSED. BREATHING EVEN AND UNLABORED. CALL LIGHT WITHIN REACH.
--- NOTE | 2022-02-13 09:19 | NUR ---
ASSESSMENT COMPLETE. PT RESTING IN BED, DROWSY BUT EASY TO AROUSE. RATES PAIN 7/10, LOCATED IN BACK. SCHEDULED PAIN MEDICATION ADINISTERED. COURSE IN ALL LOBES. IV DC'D DUE TO LEAKING. AWARE AND SAID OKAY TO LEAVE OUT. DENIES FURTHER NEEDS. CALL LIGHT WITHIN REACH. BED ALARM ON.
--- NOTE | 2022-02-13 12:15 | NUR ---
IN ROOM WITH PT. COMPLAINS OF PAIN 07/26. PRN TYLENOL ADMINISTERED. PT LAYING IN BED, REFUSING TO GET OUT OF BED. CALL LIGHT WITHIN REACH.
--- NOTE | 2022-02-13 14:37 | NUR ---
PT SLEEPING, DID NOT DISTURB. WILL FOLLOW
--- NOTE | 2022-02-13 14:45 | NUR ---
IN ROOM WITH PT. PT STATES SHE FEELS HOT, TEMP 97.7 ORALLY. PT WALKED TO THE BATHROOM, 1PA, FWW. WALKED TO RECLINER, FEET ELEVATED. CALL LIGHT WITHIN REACH. DENIES FURTHER NEEDS.
--- NOTE | 2022-02-13 15:29 | NUR ---
ASSESSMENT COMPLETE. NO NEW CHANGES SINCE MORNING ASSESSMENT. CALL LIGHT WITHIN REACH. DENIES FURTHER NEEDS.
--- NOTE | 2022-02-13 17:00 | NUR ---
pt refused lactulose x2. md aware. no new orders.
--- NOTE | 2022-02-13 18:22 | NUR ---
pt laying in bed, denies further needs. call light within reach.
--- NOTE | 2022-02-13 19:30 | NUR ---
RECEIVED REPORT FROM OFFGOING SHIFT. HOURLY ROUNDING INITIATED.
--- NOTE | 2022-02-13 20:24 | NUR ---
IN PT ROOM FOR MEDICATION ADMINISTRATION. PT RESTING ON SIDE, NO COMPLAINT OF PAIN OR DISCOMFORT. PT CALL LIGHT IN REACH
--- NOTE | 2022-02-13 22:12 | NUR ---
IN PT ROOM FOR ROUNDING. PT RESTING ON SIDE, NO INDICATION OF PAIN OR DISCOMFORT. PT CALL LIGHT IN REACH
--- NOTE | 2022-02-14 00:08 | NUR ---
IN PT ROOM FOR ROUNDING. PT RESTING ON SIDE, BREATHING EVEN AND UNLABORED, NO INDICATION OF PAIN OR DISCOMFORT. PT CALL LIGHT IN REACH
--- NOTE | 2022-02-14 00:54 | NUR ---
IN TO ANSWER CALL LIGHT. PT STATES "DID SOMEONE TRY TO CALL ME?" THIS RN IN ROOM TO ASSIST PT. PT SITTING ON EDGE OF BED. PT STATES "I CAN NOT BREATH" O2 SATS AT 98% ON RA PT STATES SHE "FEELS SOB." PT REPORTING BACK PAIN. PT REQUESTING SOMETHING TO DRINK, PT HAS COCA COLA. PT OFFERED HER COCA COLA. PT ACCEPTS HER COCA COLA. THIS RN NOTIFIED PRIMARY RN. THIS RN CALLED RT. RT ON THEIR WAY. NO OTHER NEEDS FROM THIS RN AT THIS TIME. CALL LIGHT IN REACH.
--- NOTE | 2022-02-14 02:26 | NUR ---
bed alarm going off, pt reports wanting snack and having to void. scant incontinent noted. primary rn made aware. pt back to bed and snack provided. bed alarm resumed and call light in reach. will cntinue to monitor.
--- NOTE | 2022-02-14 05:03 | NUR ---
IN PT ROOM FOR ROUNDING. PT RESTING ON SIDE, BREATHING EVEN AND UNLABORED, NO INDICATION OF PAIN OR DISCOMFORT. CALL LIGHT IN REACH
--- NOTE | 2022-02-14 07:47 | NUR ---
RECIEVED SHIFT REPORT. PT RESTING IN BED, EYES CLOSED. BREATHING EVEN AND UNLABORED. CALL LIGHT WITHIN REACH. BED ALARM ON.
--- NOTE | 2022-02-14 08:12 | NUR ---
Patient upin chair for breakfast. Am care completed, chair alarm set. coffee given, call light within reach.
--- NOTE | 2022-02-14 09:11 | NUR ---
MORNING ASSESSMENT COMPLETE. RATES PAIN 6/10, IN THE STOMACH AFTER EATING A BANANA. SCHEDULE PAIN MEDIACATION ADMINISERED. LUNG SOUNDS CLEAR BILAT UPPER, DIM BILAT LOWER. NON PRODUCTIVE COUGH. ON RA. REPORTS NAUSEA BUT IS TOLERABLE. RESTING IN BED, BED ALARM ON. CALL LIGHT WITHIN REACH.
--- NOTE | 2022-02-14 11:52 | NUR ---
PT ASLEEP, DID NOT DISTRUB. WILL FOLLOW
--- NOTE | 2022-02-14 12:37 | NUR ---
PT TEARFUL, STATES BACK HURTS 10/26. PRN PAIN MEDICATION ADMINISTERED. HEAT PAD PROVIDED. CALL LIGHT WITHIN REACH.
--- NOTE | 2022-02-14 14:02 | NUR ---
PT RESTING IN BED, EYES CLOSED. BREATHING EVEN AND UNLABORED. CALL LIGHT WITHIN REACH. WARM BLANKET PROVIDED. PT STATES PAIN MEDICATION WORKED, 07/26. BED ALARM ON.
--- NOTE | 2022-02-14 14:21 | NUR ---
PATIENT IN BED AFTER MEAL. VITALS AND I/O'S COMPLETED. BED ALARM SET. CALL LIGHT WITHIN REACH.
--- NOTE | 2022-02-14 15:10 | NUR ---
AFTERNOON ASSESSMENT COMPLETE. PT COMPLAINED OF BACK PAIN / REQUESTED TYLENOL. PRN MEDICATION ADMINISTERED (PER EMAR). PT STATES SHE DOESNT REMEMBER EATING LUNCH. PT REASSURED SHE ATE, WHAT SHE ATE, AND THAT SHE TOLD ME SHE WAS FINISHED WITH EATING. LUNG SOUNDS COURSE BILAT IN ALL LOBES. NONPRODUCTIVE COUGH NOTED. BED ALARM ON, CALL LIGHT WITHIN REACH.
--- NOTE | 2022-02-14 17:46 | NUR ---
IN ROOM. PT CRYING. STATES SHE NEEDS A CIGARETTE, PRN NICOTINE CRAVING MEDICATION ADMINISTERED (PER EMAR). PAIN 4/10, TOLERABLE. CALL LIGHT WITHIN REACH, CHAIR ALARM ON.
--- NOTE | 2022-02-14 18:02 | NUR ---
PATIENT IN BED AFTER MEAL. VITALS AND I/O'S COMPLETED. BED ALARM SET. CALL LIGHT WITHIN REACH.
--- NOTE | 2022-02-14 19:21 | NUR ---
Received report from offgoing shift, hourly rounding initiated.
--- NOTE | 2022-02-14 21:40 | NUR ---
IN PT ROOM FOR MEDICATION ADMINISTRATION, PT RESTING ON SIDE, NO COMPLAINT OF PAIN OR DISCOMFORT, PT CALL LIGHT IN REACH
--- NOTE | 2022-02-14 23:20 | NUR ---
IN PT ROOM FOR ROUNDING. PT RESTING ON SIDE, BREATHING EVEN AND UNLABOED. NO INDICATION OF PAIN OR DISCOMFORT. PT CALL LIGHT IN REACH
--- NOTE | 2022-02-15 01:00 | NUR ---
IN PT ROOM FOR ROUNDING. PT RESTING ON SIDE, CALL LIGHT IN REACH, NO COMPLAINT OF PAIN OR DISCOMFORT.
--- NOTE | 2022-02-15 02:55 | NUR ---
IN PT ROOM FOR ROUNDING, PT RESTING, CALL LIGHT IN REACH
--- NOTE | 2022-02-15 03:02 | NUR ---
IN PT ROOM FOR ROUNDING. PT RESTING, CALL LIGHT IN REACH, BREATHING EVEN AND UNLABORED, PT ON SIDE
--- NOTE | 2022-02-15 06:08 | NUR ---
IN PT ROOM FOR ROUNDING. PT RESTING ON SIDE, BREATHING IS EVEN AND UNLABORED, NO INDICATIONS OF PAIN OR DISCOMFORT. PT CALL LIGHT IN REACH
--- NOTE | 2022-02-15 07:03 | NUR ---
RECIEVED SHIFT REPORT. PT LAYING IN BED, CALL LIGHT WITHIN REACH.
--- NOTE | 2022-02-15 08:17 | NUR ---
PATIENT REFUSED ALL CARE THIS AM. BED ALARM ON, CALL LIGHT WITHIN REACH.
--- NOTE | 2022-02-15 08:53 | NUR ---
MORNING ASSESSMENT COMPLETE. COMPLAINS OF PAIN 5/10, IN THE STOMACH. SCHEDULED PAIN MEDICATION GIVEN. PT ALSO COMPLAINS OF NAUSEA, PRN ZOFRAN GIVEN ADMINSTERED (PER EMAR). LUNGS CLEAR/DIMINISHED BILAT UPPER, COURSE BILAT LOWER. DENIES FURTHER NEEDS. CALL LIGHT WITHIN REACH. BED ALARM ON.
--- NOTE | 2022-02-15 14:20 | NUR ---
PATIENT IN BED AFTER MEAL. VITALS AND I/O'S COMPLETED. ICE WATER GIVEN. CALL LIGHT WITHIN REACH.
--- NOTE | 2022-02-15 14:38 | NUR ---
AFTERNOON ASSESSMENT COMPLETE. NO NEW CHANGES SINCE MORNING ASSESSMENT. PT RESTING IN BED. CALL LIGHT WITHIN REACH. BED ALARM ON.
--- NOTE | 2022-02-15 16:39 | NUR ---
PT SITTING IN THE CHAIR, CRYING. RATES PAIN 6/10 IN BACK. CALL LIGHT WITHIN REACH. CHAIR ALARM ON.
--- NOTE | 2022-02-15 17:49 | NUR ---
ASSISTED PT FROM CHAIR TO BATHROOM THEN ASSISTED PT TO BED. VITALS AND I/O HAVE BEEN DONCUMENTED. BED ALARM IS TIRE REPAIRER LIGHT IS WITHIN REACH. PT HAS NO OTHER NEEDS AT THIS TIME.
--- NOTE | 2022-02-15 19:36 | NUR ---
REPORT RECEIVED FROM DAY SHIFT RN. PT LYING IN BED RESTING WITH EYES CLOSED. RESPIRATIONS EVEN. BED ALARM FOR SAFETY. CALL LIGHT IN REACH.
--- NOTE | 2022-02-15 22:30 | NUR ---
EVENING ASSESSMENT COMPLETE. SCHEDULED MEDS ADMIN PER EMAR. PT UP TO BR WITH SBA AND FWW TO VOID. GAIT WEAK. BACK TO BED, MARLEN WELL. REPORTS BACK/CHEST PAIN /. SCHEDULED PAIN MEDS ADMIN PER EMAR. PT DENIES NAUSEA AT THIS TIME. NO FURTHER NEEDS AT THIS TIME. CALL LIGHT IN REACH. BED ALARM FOR SAFETY.
--- NOTE | 2022-02-16 01:48 | NUR ---
BED ALARM SOUNDED. INTO ROOM PATIENT SWUNG LEGS OVER SIDE OF BED. UP TO BATHROOM STBY WITH WALKER, PATIENT APPEARS PLEASANTLY CONFUSED. VOIDED 200 ML OF URINE. PATIENT BACK TO BED, EATING SNACKS. BED ALARM ON. NO OTHER NEEDS AT THIS TIME.
--- NOTE | 2022-02-16 03:43 | NUR ---
PT RESTING IN BED WITH EYES CLOSED. RESPIRATIONS EVEN. CALL LIGHT IN REACH.
--- NOTE | 2022-02-16 04:46 | NUR ---
PT REPORTS BACK/CHEST PAIN 09/25. PRN FOR PAIN ADMIN PER EMAR. ASSISTED PT TO REPOSITION FOR COMFORT. VS AND I&O COMPLETE. NO FURTHER NEEDS. BED ALARM FOR SAFETY. CALL LIGHT IN REACH.
--- NOTE | 2022-02-16 07:35 | NUR ---
recieved shift report. call light within reach. pt sitting up on the side of the bed, eating oreos. bed alarm on.
--- NOTE | 2022-02-16 09:16 | NUR ---
MORNING ASSESSMENT COMPLETE. PT APPEARS MORE ALERT THIS MORNING WITH HER SURROUNDINGS. PT IS TIRED, AND REQUESTS TO LET SLEEP. STATES PAIN IS 4/10 IN THE UPPER BACK. SCEDHULED PAIN MEDICATION ADMINISTERED. DENIES NAUSEA AT THIS TIME. LUNG SOUNDS CLEAR/DIM IN ALL LOBES. REMAINS ON ROOM AIR. CALL LIGHT WITHIN REACH. BED ALARM ON.
--- NOTE | 2022-02-16 10:07 | NUR ---
PT SITTING UP IN BED. FOOD REHEATED. CALL LIGHT WITHIN REACH. BED ALARM ON.
--- NOTE | 2022-02-16 11:59 | NUR ---
pt resting in bed, eyes closed. bed alarm on. call light within reach. breathing even and unlabored.
--- NOTE | 2022-02-16 12:50 | NUR ---
PT LAYING IN BED, EYES CLOSED. DISCUSSED WITH PT SHE HAS NOT URINATED SINCE THIS MORNING. PT IS REFUSING TO GET OUT OF BED, STATES SHE DOES NOT HAVE TO USE THE BATHROOM, AND SHE DOES NOT FEEL GOOD. PT WONT TELL WHAT MAKING HER NOT FEEL GOOD. BED ALARM ON. CALL LIGHT WITHIN REACH.
--- NOTE | 2022-02-16 12:56 | NUR ---
MD AWARE OF DECREASE IN URINE OUTPUT. MD STATES LET PT REST, IN A COUPLE HOURS BLADDER SCAN. ALSO INFORMED PT INTAKE IS POOR, WITH NO INTEREST IN GETTING OUT OF BED.
--- NOTE | 2022-02-16 15:47 | NUR ---
afternoon assessment complete. pt no new changes since more shift. pt is urinating more, but still unwilling to get out of bed. call light within reach. bed alarm on.
--- NOTE | 2022-02-16 17:15 | NUR ---
SET DINNER TRAY UP, PT SITTING ON THE SIDE OF BED. CALL LIGHT WITHIN REACH. BED ALARM ON.
--- NOTE | 2022-02-16 17:21 | NUR ---
IN ROOM, PT STATES PAIN 10/10, IN BACK. PRN PAIN MEDICATION GIVEN (SEE EMAR). CALL LIGHT WITHIN REACH. BED ALARM ON.
--- NOTE | 2022-02-16 19:33 | NUR ---
REPORT RECEIVED FROM DAY SHIFT RN. PT LYING IN BED ON LEFT SIDE WITH EYES CLOSED. RESPIRATIONS EVEN. BED ALARM FOR SAFETY. CALL LIGHT IN RECH. WHITE BOARD UPDATED.
--- NOTE | 2022-02-16 20:58 | NUR ---
BED ALARM SOUNDING. PT FOUND TO BE OUT OF BED CLOSE TO BATHROOM DOOR. IN TO SBA TO VOID. BRIEF CHANGED. BACK TO BED WITH FWW. GAIT WEAK. REPORTS 9/10 BACK PAIN. SCHEDULED MEDS ADMIN PER EMAR. PT DENIES NAUSEA. ASSESSMENT COMPLETE. VS WNL. NO FURTHER NEEDS. BED ALARM FOR SAFETY. CALL LIGHT IN REACH.
--- NOTE | 2022-02-16 21:33 | NUR ---
SUPPLIER DIVERSITY DIRECTOR TO ROOM FOR BED ALARM SOUNDING. PT SITTING AT EDGE OF BED WITH RT PRESENT AT BEDSIDE. PT ROCKING. REPORTS PAIN TO UPPERBACK. PRN ADMINISTERED, SEE EMAR. PT DENIES FURTHER NEEDS. ASSISTED BACK TO BED AND COVERS REPLACED. CALL LIGHT IN REACH. BED ALARM ACTIVE.
--- NOTE | 2022-02-17 00:31 | NUR ---
PT UP TO BR WITH 1PA AND FWW TO VOID. BACK TO BED, GAIT WEAK. REPORTS MID BACK PAIN 09/25. PRN FOR PAIN ADMIN PER EMAR. ASSISTED TO REPOSITION WITH WARM PACK TO BACK. NO FURTHER NEEDS. BED ALARM FOR SAFETY.
--- NOTE | 2022-02-17 02:20 | NUR ---
PT REPORTS BACK PAIN 09/25. PRN FOR PAIN ADMIN PER EMAR. ASSISTED TO REPOSITION. ASSESSMENT COMPLETE. BED ALARM FOR SAFETY. CALL LIGHT IN REACH.
--- NOTE | 2022-02-17 04:28 | NUR ---
PT RESTING IN BED WITH EYES CLOSED. RESPIRATIONS EVEN. BED ALARM FOR SAFETY.
--- NOTE | 2022-02-17 07:39 | NUR ---
REPORT RECIEVED FROM KAYLA PÉREZ. PT SLEEPING IN BED.
--- NOTE | 2022-02-17 08:47 | NUR ---
PT UP ON SIDE OF BED EATING BREAKFAST, SHE IS IN A GOOD MOOD TODAY. BED ALARM SET AND CALL LIGHT IN PLACE.
--- NOTE | 2022-02-17 11:16 | NUR ---
LAYING IN BED ON SIDE SLEEPING. CALL LIGHT IN REACH.
--- NOTE | 2022-02-17 14:27 | NUR ---
PT IS RESTING ON THE COUCH IN THE ROOM, KAYLA GAGNON SAID IT WAS FINE. SHE CAN REACH THE CALL LIGHT. NO OTHER NEEDS AT THIS TIME.
--- NOTE | 2022-02-17 15:58 | NUR ---
PT RESTING ON COUCH AGAIN. PHYS THERAPIST HAD ASSISTED HER TO THE BED FROM THE COUCH.
--- NOTE | 2022-02-17 16:43 | NUR ---
PT SITTING IN CHAIR CRYING. FEELS BAD ABOUT SNAPPING AT STAFF AND IS EMOTIONAL REGARDING HER CONDITION. DENIES NEEDS ATT.
--- NOTE | 2022-02-17 19:44 | NUR ---
REPORT RECEIVED FROM DAY SHIFT RN. PT LYING IN BED RESTING WITH EYES CLOSED. RESPIRATIONS EVEN. CALL LIGHT IN REACH. BED ALARM FOR SAFETY.
--- NOTE | 2022-02-17 20:45 | NUR ---
EVENING ASSESSMENT COMPLETE. SCHEDULED MEDS ADMIN PER EMAR. PT REPORTS BACK PAIN /. PAIN MEDS GIVEN. PT UP TO BR WITH FWW AND SBA TO VOID AND HAVE SM BM. STAFF ASSIST WITH PRISCA CARE. BACK TO BED, MARLEN WELL. DENIES SOB. ASSISTED PT TO REPOSITION WITH PILLOWS FOR COMFORT. CALL LIGHT IN REACH. BED ALARM FOR SAFETY.
--- NOTE | 2022-02-18 00:48 | NUR ---
BED ALARM SOUNDING. PT UP TO BR WITH FWW AND SBA TO VOID. BACK TO BED, MARLEN FAIR. REPORTS BACK PAIN 10/26. PRN FOR PAIN ADMIN PER EMAR. ASSISTED PT TO REPOSITION FOR COMFORT. WARM BLANKET PROVIDED. BED ALARM IN PLACE.
--- NOTE | 2022-02-18 02:36 | NUR ---
BED ALARM SOUNDING. PT UP TO BR WITH FWW AND SBA TO VOID. BACK TO BED. STATES "I JUST FEEL AWFUL." PT WITH C/O PAIN AND NAUSEA. PRN FOR PAIN AND N/V ADMIN PER EMAR. ASSESSMENT COMPLETE. PT DENIES SOB. ASSISTED TO REPOSITION FOR COMFORT. NO FURTHER NEEDS. BED ALARM FOR SAFETY.
--- NOTE | 2022-02-18 06:51 | NUR ---
PT UP TO BR WITH SBA TO VOID. BACK TO BED, MARLEN WELL. VS AND I&O COMPLETE. CRACKERS AND SPRITE PROVIDED. NO FURTHER NEEDS. BED ALARM IN PLACE.
--- NOTE | 2022-02-18 07:15 | NUR ---
REPORT FROM RING PACKER.
--- NOTE | 2022-02-18 07:50 | NUR ---
Called and spoke with Hope from [facility]. They will accept Radha tomorrow and would like her to be there around 10:00. I will send 3 days of notes, sends dc orders, schedule the WC van, and contact [facility] for [facility].
--- NOTE | 2022-02-18 08:37 | NUR ---
MORNING ASSESSMENT IS COMPLETE. MORNING MEDICATIONS GIVEN. DR. FRAZIER IN TO SEE PATIENT. PATIENT REPORTS PAIN 3/10 AND GIVEN SCHEDULED 10MG OXYCONTIN. PATIENT IS SITTING UP IN BED TO EAT BREAKFAST AND PLANS TO GO BACK TO SLEEP. NO OTHER NEEDS NOTED AT THIS TIME.
--- NOTE | 2022-02-18 09:59 | NUR ---
PATIENT IS SLEEPING WITH REGULAR RESPIRATIONS.
--- NOTE | 2022-02-18 10:58 | NUR ---
FRANCHESCA ZIMMER CALLED, GIVEN UPDATES REGARDING PATIENT PLACEMENT PLANNED FOR TOMORROW TO [facility]. PATIENT IS SLEEPING WITH REGULAR RESPIRATIONS.
[2022-02-18] MEDS ORDERED: ONDANSETRON ODT4 MG SL (10:59)
[2022-02-18] MEDS ORDERED: OXYCODONE HCL5 MG PO (10:59)
[2022-02-18] MEDS ORDERED: OXYCONTIN10 MG PO (10:59)
--- NOTE | 2022-02-18 11:00 | NUR ---
Spoke with [facility], they cannot accept this pt until . I spoke with Anca at [facility] she can admit this pt on Thursday and will have the equipment delivered on Thu or morning of this week. Dr. Araujo completed orders and RX, all faxed to [facility].
--- NOTE | 2022-02-18 12:35 | NUR ---
both nares swabbed without complication.
[2022-02-18] MEDS ORDERED: MOVANTIK12.5 MG PO (12:46)
--- NOTE | 2022-02-18 14:04 | NUR ---
PATIENT IS SLEEPING WITH REGULAR RESPIRATIONS.
--- NOTE | 2022-02-18 18:13 | NUR ---
PATIENT GIVEN EVENING MEDICATIONS. PATIENT GIVEN ONE 5MG OXYCODONE FOR 9/10 ABD PAIN.
--- NOTE | 2022-02-18 19:35 | NUR ---
REPORT RECEIVED FROM DAY SHIFT RN. PT LYING ON COUCH WITH EYES CLOSED. WHITE BOARD UPDATED. CURTAIN OPEN. PT IN VIEW OF NURSES STATION.
--- NOTE | 2022-02-18 20:42 | NUR ---
PT INCONTINENT OF URINE AND BM. 1PA WITH FWW TO BR. PRISCA CARE DONE BY STAFF. CLEAN BRIEF PLACED. BACK TO BED, GAIT STEADY BUT WEAK. EVENING ASSESSMENT COMPLETE. SCHEDULED MEDS ADMIN. PRN ADMIN FOR C/O NAUSEA. PT EMOTIONAL AND ANXIOUX ABOUT UPCOMING DISCHARGE. THERAPEUTIC COMMUNICATION UTILIZED. WARM BLANKET PROVIDED. BED ALARM FOR SAFETY. CALL LIGHT IN REACH.
--- NOTE | 2022-02-18 21:43 | NUR ---
BED ALARM SOUNDING. pt UP TO RESTROOM, SBA, GAIT UNSTEADY, GRABBING AT FURNITURE. WALKER PROVIDED. 100 ML VOID AND BACK IN BED. BED ALARM ON. CALL LIGHT IN REACH.
--- NOTE | 2022-02-19 00:40 | NUR ---
PT RESTING IN BED WITH EYES CLOSED. RESPIRATIONS EVEN. CALL LIGHT IN REACH. BED ALARM FOR SAFETY.
--- NOTE | 2022-02-19 02:36 | NUR ---
BED ALARM SOUNDING. PT UP TO BR WITH FWW AND SBA TO VOID. STAFF ASSIST WITH PRISCA CARE. BACK TO BED, MARLEN FAIR. GAIT UNSTEADY. PT REPORTS BACK PAIN 9/10 AND NAUSEA. PRN FOR N/V AND PAIN ADMIN PER ORDER. NO FURTHER NEEDS. BED ALARM FOR SAFETY. CALL LIGHT IN REACH.
--- NOTE | 2022-02-19 03:24 | NUR ---
PT UP TO BR WITH VEHICLE DISMANTLER ASSIST. REPORTS BACK PAIN 9/10 AND NAUSEA. PRN FOR N/V ADMIN PER EMAR.
--- NOTE | 2022-02-19 03:27 | NUR ---
BED ALARMING. PATIENT SAT AT THE EDGE OF THE BED. SBA TO THE BATHROOM AND BACK TO BED. PATIENT VOIDED 75 ML IN THE HAT. PUT ON FRESH PULL UP. PATIENT IS BACK IN BED. NO OTHER CARE NEEDS AT THIS TIME . BED ALARM ON FOR SAFETY.
--- NOTE | 2022-02-19 06:43 | NUR ---
PT HAD RESTLESS NIGHT. LYING ON RIGHT SIDE WITH EYES CLOSED AT THIS TIME. RESPIRATIONS EVEN. SPOT CHECK SpO2 96%. HR 70'S. BP HELD AT THIS TIME. BED ALARM FOR SAFETY.
--- NOTE | 2022-02-19 07:25 | NUR ---
REPORT RECEIVED FROM BETO GARZA, ALL QUESTIONS ANSWERED. PT RESTING IN BED WITH EYES CLOSED, RESPIRATIONS EVEN AND UNLABORED.
--- NOTE | 2022-02-19 08:15 | NUR ---
OVER TO UNIT, PATIENT SITTING UP IN CHAIR WATCHING TV. NO NEEDS AT THIS TIME. PLAN FOR DISCHARGE TO [facility] 02/20/22.
--- NOTE | 2022-02-19 09:17 | NUR ---
MORNING ASSESSMENT COMPLETE. PT RESTING IN BED WITH EYES CLOSED, AWAKENS EASILY TO TAKE MEDS. STATES PAIN IS TOLERABLE TO AT THIS TIME. ORIENTED TO SELF AND PLACE. PT DENIES NEEDS AT THIS TIME. CALL LIGHTIN REACH. BED ALARM ON.
--- NOTE | 2022-02-19 09:56 | NUR ---
PT IN BED. VITALS AND IS AND OS COMPLETE. PT BED ALARM SET. NO FURTHER NEEDS. CALL LIGHT WITHIN REACH
--- NOTE | 2022-02-19 12:15 | NUR ---
PT RESTING IN BED, AWAKENS EASILY. EATING LUNCH, STATES PAIN IS IMPROVED. DENIES FURTHER NEEDS AT THIS TIME. CALLL IGHT IN REACH.
--- NOTE | 2022-02-19 15:09 | NUR ---
Attempted to schedule transport for van at 10:00 tomorrow. They do not have any opening until noon. Transport scheduled for noon. Called Rubi at [facility] and updated. Per Rubi, funiture was delivered today from [facility].
--- NOTE | 2022-02-19 15:23 | NUR ---
PT UP TO RESTROOM AND BACK TO BED. CALL LIGHT IN REACH. BED ALARM ON.
--- NOTE | 2022-02-19 19:42 | NUR ---
Received bedside report from day nurse. Pt. aox4, sitting in bed. NAD, no c/o. Educated pt. on POC. Pt. verbalized understanding. Will continue to follow POC.
--- NOTE | 2022-02-19 21:48 | NUR ---
BED ALARM SOUNDING. SBA WITH FWW TO RESTROOM FOR VOID. ATTENDS CHANGED, SMEAR OF STOOL. SMALL VOID, UNMEASURED. BACK TO BED, WARM BLANKET PROVIDED. SNACK PROVIDED. BED ALARM ON.
--- NOTE | 2022-02-19 22:47 | NUR ---
PT. NONCOMPLIANT WITH FALL PREVENTION PROTOCOLS. DOES NOT CALL FOR ASSISTANCE TO USE BR. ROOM CLOSE TO NURSE STATION. FREQUENT OBSERVATION PERFORMED. FALLS RISK AND PREVENTION EDUCATION REINFORCED. PT. NOT VERBALIZES UNDERSTANDING AND AGREEMENT BUT CONTINUES TO BE NONCOMPLIANT.
--- NOTE | 2022-02-20 03:15 | NUR ---
BED ALARM SOUNDING. GAIT UNSTEADY, pt OUT OF BED WHEN RN ENTERS ROOM, REACHING FOR SINK FOR STABILITY. WALKER PROVIDED. SBA TO RESTROOM FOR VOID. ATTENDS CHANGED. pt BACK IN BED. RATES PAIN 9/10. PRN PAIN MEDICATION ADMINISTERED. PO SNACK PROVIDED. BED ALARM ON.
--- NOTE | 2022-02-20 06:17 | NUR ---
PT. TOLERATED MEDS AND PROCEDURES THIS SHIFT. NO ACUTE OVERNIGHT EVENTS. WILL CONTINUE TO FOLLOW POC.
--- NOTE | 2022-02-20 07:22 | NUR ---
REPORT RECEIVED FROM LOAD DISPATCHER RNJONATHAN. ALL QUESTIONS ANSWERED. PT RESTING QUIETLY IN BED WITH EYES CLOSED, AWAKENS EASILY. PT DENIES NEEDS AT THIS TIME. CALL LIGHT IN REACH. BED ALARM ON.
--- NOTE | 2022-02-20 08:00 | NUR ---
Received a call from [facility]. Faxed updated med orders as they already have move in orders from Thursday. Pt will transport per at 12:30 today and they will call for any needs.
--- NOTE | 2022-02-20 09:21 | NUR ---
MORNING ASSESSMENT COMPLETE. PT TEARFUL, FORGETFUL OR DISCHARGE PLAN. EXPLAINED DISCHARGE PANS, PT STATES SHE FEELS BETTER, EAGER TO GO. STATES PAIN IS 4/10, GIVEN SCHEDULED OXYCONTIN. PT DENIES FURTHER NEEDS AT THIS TIME. CALL LIGHT IN REACH.
--- NOTE | 2022-02-20 12:43 | NUR ---
REPORT CALLED TO DUONG AT [facility]. ALL QUESTIONS ANSWERED.
--- NOTE | 2022-02-20 12:52 | NUR ---
PT SITTING ON SIDE OF BED, WEEPING. SHE SAID SHE WANTS TO GO HOME AND THAT SHE WAS IN A LOT OF PAIN. GAVE ENCOURAGEMENT, INFORMED RN EZEKIEL. SHE WILL FOLLOW UP. PT WAS LEAVING GAVE BLESSING-PT TO [facility].
--- NOTE | 2022-02-20 14:00 | NUR ---
Received a call from [facility] asking where pts belongings are. Let her know son had said he would deliver her belongings last week. He visited from [place] twice. Rubi denies he brought any of pts belongings. Called the son and reminded pt went to [facility] today. He states he is aware. He also states the travel trailer pt was living in belonged to her cousin. Cousin sold the trailer over the weekend and posted on facebook for family to get any belonging they wanted as the trailer was going to [place] over the weekend. Son states all of pts belonging were thrown away. Called and updated [facility]. Called Mariela Abarca in [employer] and Laura Real in [employer]. Laura has funds and will go to [facility] tomorrow and buy pt clothing, Rubi from [facility] will buy her personal items like shampoo, tooth brush and paste, deodorant etc. Spoke with Christel Scanlon at [facility]. She states they is a note on the dc orders showing pt take own Ursodiol. Checked with pharmacy and pt has not been taking here. Dr. Carmona cancelled ordered and updated order faxed to [facility].
== END 2022-02-20 12:00 | disposition home or self-care (01) | DRG 840 ==
LOC: ED 04:31 → MS 04:32
PROVIDERS: ADMIT Internal Medicine; ATTEND Family Medicine
DX: C77.2 Secondary and unspecified malignant neoplasm of intra-abdominal lymph nodes (principal); G93.41 Metabolic encephalopathy; U07.1 COVID-19; C16.0 Malignant neoplasm of cardia; C78.7 Secondary malignant neoplasm of liver and intrahepatic bile duct; N30.00 Acute cystitis without hematuria; N17.9 Acute kidney failure, unspecified; Z66 Do not resuscitate; E83.52 Hypercalcemia; Z20.822 Contact with and (suspected) exposure to COVID-19; B19.20 Unspecified viral hepatitis C without hepatic coma; B96.20 Unspecified Escherichia coli [E. coli] as the cause of diseases classified elsewhere; F17.210 Nicotine dependence, cigarettes, uncomplicated; I50.9 Heart failure, unspecified; C77.1 Secondary and unspecified malignant neoplasm of intrathoracic lymph nodes; G89.3 Neoplasm related pain (acute) (chronic); J40 Bronchitis, not specified as acute or chronic; Z96.651 Presence of right artificial knee joint; Z90.49 Acquired absence of other specified parts of digestive tract; Z98.890 Other specified postprocedural states; I25.2 Old myocardial infarction; Z88.0 Allergy status to penicillin; Z88.5 Allergy status to narcotic agent; Z79.899 Other long term (current) drug therapy
CPT/HCPCS: 36415; 71045; 80048; 80053; 80076; 80202; 81001; 83735; 83880; 84484; 85025; 85060; 85379; 85610; 87077; 87088; 87186; 87502; 93005; 93010; 94640; 94667; 94668; 94760; 97110; 97116; 97163; A9270; C9113; C9803; J0696; J0780; J1650; J1940; J1956; J2270; J2405; J2550; J3010; J3370; J3475; J3489; J7030; J7060; J7121; U0003